=== PATIENT | male | born 1940 | race Caucasian/White ===

== ENCOUNTER 2017-09-17 09:14 | Observation (INO) | payer OTHER ==
[~2017-09-17] VITALS: Ht 175.3 cm; Wt 82.0 kg
[~2017-09-17 09:14] MED LIST: AMLO5 PO; ASPI81CH PO; CLOP75 PO; CYAN1000 PO; Cipro500 MG PO; DAPS100 PO; Dapsone25 MG PO; FISH1000 PO; Flagyl250 MG PO; METO25ER PO; OMEP20ER PO; PANT40 PO; PRAV20 PO; TRIA80TC TOP; Vitamin C1000 M1 PO
[2017-09-17 09:41] LABS: BASOPHILS ABSOLUTE AUTO 0.09 K/mm3 (0.00-0.23); BASOPHILS PERCENT AUTO 0 % (0-2); EOSINOPHILS PERCENT AUTO 1 % (0-6); Hematocrit 42.2 % (37.0-53.0); Hemoglobin 14.2 g/dL (13.5-17.5); IMMATURE GRAN PERCENT AUTO 1 % (0-1); LYMPHOCYTES ABSOLUTE AUTO 3.53 K/mm3 (0.84-5.20); LYMPHOCYTES PERCENT AUTO 18 % (21-46); MONOCYTES ABSOLUTE AUTO 1.55 K/mm3 (0.16-1.47); MONOCYTES PERCENT AUTO 8 % (4-13); Mean Corpuscular HGB 36.9 pg (26.0-34.0); Mean Corpuscular HGB Conc 33.6 g/dL (31.5-36.5); Mean Corpuscular Volume 110 fL (80-100); Mean Platelet Volume 10.5 fL (9.1-12.4); NEUTROPHILS ABSOLUTE AUTO 14.62 K/mm3 (1.96-9.15); NEUTROPHILS PERCENT AUTO 73 % (41-73); Platelet Count 177 K/mm3 (150-400); RDW Coefficient Variation 12.5 % (11.7-14.2); RDW Standard Deviation 50.5 fL (35.1-46.3); Red Blood Cell Count 3.85 M/mm3 (4.30-5.90); White Blood Cell Count 20.09 K/mm3 (4.00-11.30)
[2017-09-17] MEDS ORDERED: ATOR40TA PO (09:48)
[2017-09-17] MEDS ORDERED: CARV6.25 PO (09:49)
[2017-09-17] MEDS ORDERED: Ferrous Fumara324 MG PO (09:51)
[2017-09-17] MEDS ORDERED: Prinivil10 MG PO (09:52)
[2017-09-17] MEDS ORDERED: MICROZIDE12.5 M1 PO (09:52)
[2017-09-17] MEDS ORDERED: Hair, Skin & N1 EACH PO (09:53)
[2017-09-17 09:54] LABS: International Normalized Ratio 0.97; Prothrombin Time Results 10.1 Sec (9.7-11.5)
[2017-09-17 10:04] LABS: Alanine Aminotransfer (ALT/SGP 26 U/L (12-78); Albumin, Blood 3.9 g/dL (3.4-5.0); Albumin/Globulin Ratio 1.3 (0.8-1.8); Alk Phos 87 U/L (50-136); Anion Gap 7 mmol/L (6-16); Aspartate Aminotrans (AST/SGOT 19 U/L (12-37); Bilirubin, Total 0.5 mg/dL (0.1-1.0); Blood Urea Nitrogen 13 mg/dL (8-24); Bun/Creatinine Ratio 20.5 (12.0-20.0); CO2, Blood 27 mmol/L (21-32); Calcium, Blood 9.1 mg/dL (8.5-10.1); Chloride, Blood 104 mmol/L (98-108); Creatinine, Blood 0.63 mg/dL (0.60-1.20); Globulin, Blood 3.1 g/dL (2.2-4.0); Glomerular Filtration Rate >60 (60-); Glucose, Blood 125 mg/dL (70-99); Magnesium, Blood 1.8 mg/dL (1.6-2.4); Potassium, Blood 4.5 mmol/L (3.5-5.5); Sodium, Blood 138 mmol/L (136-145); Troponin I 0.016 ng/mL (0.000-0.040)
[2017-09-17 10:11] LABS: Digoxin (Lanoxin) 0.09 ug/mL (0.80-2.00)
[2017-09-17 11:15] LABS: Bilirubin, Urine Neg (Neg); Blood, Urine 1+ (Neg); Glucose Qualitative, Urine Neg (Neg); Ketones, Urine Neg (Neg); Leukocyte Esterase, Urine Neg (Neg); Nitrite, Urine Neg (Neg); Protein, Urine 2+ (Neg); Urobilinogen, Urine NORM (Normal)
[2017-09-17 11:30] LABS: Appearance, Urine Clear (Clear); Color, Urine Yellow (P-Yellow)
[2017-09-17 11:41] LABS: Bacteria Rare /hpf; Red Blood Cells, Urine 0-2 /hpf (0-2); Squamous Epithelial Cells Rare /hpf (Few); White Blood Cells, Urine 0-2 /hpf (0-5)
[2017-09-18 05:09] LABS: BASOPHILS ABSOLUTE AUTO 0.08 K/mm3 (0.00-0.23); BASOPHILS PERCENT AUTO 1 % (0-2); EOSINOPHILS ABSOLUTE AUTO 0.24 K/mm3 (0.00-0.68); EOSINOPHILS PERCENT AUTO 2 % (0-6); Hematocrit 38.9 % (37.0-53.0); Hemoglobin 13.1 g/dL (13.5-17.5); IMMATURE GRAN ABSOLUTE AUTO 0.04 K/mm3 (0.00-0.10); IMMATURE GRAN PERCENT AUTO 0 % (0-1); LYMPHOCYTES ABSOLUTE AUTO 3.46 K/mm3 (0.84-5.20); LYMPHOCYTES PERCENT AUTO 33 % (21-46); MONOCYTES ABSOLUTE AUTO 0.82 K/mm3 (0.16-1.47); MONOCYTES PERCENT AUTO 8 % (4-13); Mean Corpuscular HGB 36.8 pg (26.0-34.0); Mean Corpuscular HGB Conc 33.7 g/dL (31.5-36.5); Mean Corpuscular Volume 109 fL (80-100); Mean Platelet Volume 10.7 fL (9.1-12.4); NEUTROPHILS ABSOLUTE AUTO 6.01 K/mm3 (1.96-9.15); NEUTROPHILS PERCENT AUTO 56 % (41-73); Platelet Count 149 K/mm3 (150-400); RDW Coefficient Variation 12.3 % (11.7-14.2); RDW Standard Deviation 50.4 fL (35.1-46.3); Red Blood Cell Count 3.56 M/mm3 (4.30-5.90); White Blood Cell Count 10.65 K/mm3 (4.00-11.30)
[2017-09-18 05:26] LABS: Anion Gap 7 mmol/L (6-16); Blood Urea Nitrogen 17 mg/dL (8-24); Bun/Creatinine Ratio 28.9 (12.0-20.0); CO2, Blood 26 mmol/L (21-32); Calcium, Blood 9.2 mg/dL (8.5-10.1); Chloride, Blood 104 mmol/L (98-108); Creatinine, Blood 0.59 mg/dL (0.60-1.20); Glomerular Filtration Rate >60 (60-); Glucose, Blood 141 mg/dL (70-99); Potassium, Blood 4.5 mmol/L (3.5-5.5); Sodium, Blood 137 mmol/L (136-145)
== END 2017-09-18 11:01 | disposition home or self-care (01) ==
LOC: ER 09:14 → MEDS 09:15 → ENPENDDIS 09-18 10:00 → MEDS 09-18 11:01
PROVIDERS: Emergency Medicine; Internal Medicine
DX: R00.1 Bradycardia, unspecified (principal); R55 Syncope and collapse; I48.91 Unspecified atrial fibrillation; I25.10 Atherosclerotic heart disease of native coronary artery without angina pectoris; I10 Essential (primary) hypertension; F17.210 Nicotine dependence, cigarettes, uncomplicated; R42 Dizziness and giddiness; Z79.82 Long term (current) use of aspirin; Z79.899 Other long term (current) drug therapy; Z79.02 Long term (current) use of antithrombotics/antiplatelets; Z95.5 Presence of coronary angioplasty implant and graft
CPT/HCPCS: 36415; 71045; 80048; 80053; 80162; 81001; 83735; 83880; 84484; 85025; 85610; 93005; 93010; 99285; G0378

== ENCOUNTER 2019-06-19 13:04 | Inpatient (IN) | payer OTHER ==
[~2019-06-19] VITALS: Ht 175.3 cm; Wt 83.3 kg
[~2019-06-19 13:04] MED LIST changes: +CARV6.25 PO; -CYAN1000 PO; -Dapsone25 MG PO; -FISH1000 PO; +MICROZIDE12.5 M1 PO; -PANT40 PO
[2019-06-19 13:49] LABS: BASOPHILS ABSOLUTE AUTO 0.06 K/mm3 (0.00-0.23); BASOPHILS PERCENT AUTO 1 % (0-2); EOSINOPHILS ABSOLUTE AUTO 0.08 K/mm3 (0.00-0.68); EOSINOPHILS PERCENT AUTO 1 % (0-6); Hematocrit 37.9 % (37.0-53.0); Hemoglobin 12.4 g/dL (13.5-17.5); IMMATURE GRAN ABSOLUTE AUTO 0.03 K/mm3 (0.00-0.10); IMMATURE GRAN PERCENT AUTO 0 % (0-1); LYMPHOCYTES ABSOLUTE AUTO 2.86 K/mm3 (0.84-5.20); LYMPHOCYTES PERCENT AUTO 23 % (21-46); MONOCYTES ABSOLUTE AUTO 1.12 K/mm3 (0.16-1.47); MONOCYTES PERCENT AUTO 9 % (4-13); Mean Corpuscular HGB 35.4 pg (26.0-34.0); Mean Corpuscular HGB Conc 32.7 g/dL (31.5-36.5); Mean Corpuscular Volume 108 fL (80-100); Mean Platelet Volume 10.3 fL (9.1-12.4); NEUTROPHILS ABSOLUTE AUTO 8.08 K/mm3 (1.96-9.15); NEUTROPHILS PERCENT AUTO 66 % (41-73); NRBC ABSOLUTE 0.02 K/mm3 (0.00-0.02); NRBC Auto 0.2 /100 WBC (0.0-0.2); Platelet Count 175 K/mm3 (150-400); RDW Coefficient Variation 13.8 % (11.7-14.2); RDW Standard Deviation 54.6 fL (35.1-46.3); White Blood Cell Count 12.23 K/mm3 (4.00-11.30)
[2019-06-19 14:12] LABS: Alanine Aminotransfer (ALT/SGP 38 U/L (12-78); Albumin, Blood 3.3 g/dL (3.4-5.0); Albumin/Globulin Ratio 1.2 (0.8-1.8); Alk Phos 80 U/L (50-136); Anion Gap 9 mmol/L (6-16); Aspartate Aminotrans (AST/SGOT 28 U/L (12-37); Bilirubin, Total 0.6 mg/dL (0.1-1.0); Blood Urea Nitrogen 16 mg/dL (8-24); Bun/Creatinine Ratio 18.3 (12.0-20.0); CO2, Blood 24 mmol/L (21-32); Calcium, Blood 8.7 mg/dL (8.5-10.1); Chloride, Blood 108 mmol/L (98-108); Creatinine, Blood 0.88 mg/dL (0.60-1.20); Globulin, Blood 2.8 g/dL (2.2-4.0); Glomerular Filtration Rate >60 (60-); Glucose, Blood 127 mg/dL (70-99); Potassium, Blood 3.9 mmol/L (3.5-5.5); Sodium, Blood 141 mmol/L (136-145); Total Protein, Blood 6.1 g/dL (6.4-8.2); Troponin I 0.075 ng/mL (0.000-0.040)
[2019-06-19 15:17] LABS: Magnesium, Blood 1.8 mg/dL (1.6-2.4)
[2019-06-19 15:18] LABS: Thyroid Stimulating Hormone 2.19 uIU/mL (0.360-4.800)
[2019-06-19] MEDS ORDERED: ATOR40TA PO (15:29)
[2019-06-19] MEDS ORDERED: Fish Oil 10001000 MG PO (15:31)
[2019-06-19] MEDS ORDERED: Vitamin B-121000 MCG PO (15:31)
[2019-06-19] MEDS ORDERED: PANT40 PO (15:31)
[2019-06-19] MEDS ORDERED: Prinivil10 MG PO (15:32)
[2019-06-19] MEDS ORDERED: Dapsone25 MG PO (15:32)
[2019-06-19] MEDS ORDERED: FEROSUL325 M1 PO (15:32)
[2019-06-19] MEDS ORDERED: Hair, Skin & N1 EACH PO (15:32)
--- NOTE | 2019-06-19 15:32 | NUR ---
Echocardiogram completed.
[2019-06-19] MEDS ORDERED: ELIQUIS5 MG PO (15:45)
[2019-06-19] MEDS ORDERED: FURO20 PO (17:50)
[2019-06-19] MEDS ORDERED: METO25ER PO (17:51)
[2019-06-19] MEDS ORDERED: Klor-Con 1010 MEQ PO (17:52)
[2019-06-19 20:41] LABS: Source, Urine Clean Catch
[2019-06-19 20:54] LABS: Bilirubin, Urine Neg (Neg); Blood, Urine Neg (Neg); Glucose Qualitative, Urine 4+ (Neg); Ketones, Urine Neg (Neg); Leukocyte Esterase, Urine Neg (Neg); Nitrite, Urine Neg (Neg); Protein, Urine 1+ (Neg); Urobilinogen, Urine NORM (Normal)
[2019-06-19 21:00] LABS: Appearance, Urine Clear (Clear); Color, Urine Yellow (P-Yellow)
--- NOTE | 2019-06-19 22:45 | NUR ---
URINE SAMPLE COLLECTED AND SENT TO LAB.
[2019-06-20 01:13] LABS: BASOPHILS ABSOLUTE AUTO 0.02 K/mm3 (0.00-0.23); BASOPHILS PERCENT AUTO 0 % (0-2); EOSINOPHILS PERCENT AUTO 0 % (0-6); Hematocrit 39.8 % (37.0-53.0); Hemoglobin 12.7 g/dL (13.5-17.5); IMMATURE GRAN ABSOLUTE AUTO 0.04 K/mm3 (0.00-0.10); IMMATURE GRAN PERCENT AUTO 0 % (0-1); LYMPHOCYTES ABSOLUTE AUTO 1.83 K/mm3 (0.84-5.20); LYMPHOCYTES PERCENT AUTO 20 % (21-46); MONOCYTES ABSOLUTE AUTO 0.32 K/mm3 (0.16-1.47); MONOCYTES PERCENT AUTO 3 % (4-13); Mean Corpuscular HGB 34.3 pg (26.0-34.0); Mean Corpuscular HGB Conc 31.9 g/dL (31.5-36.5); Mean Corpuscular Volume 108 fL (80-100); Mean Platelet Volume 10.1 fL (9.1-12.4); NEUTROPHILS ABSOLUTE AUTO 7.11 K/mm3 (1.96-9.15); NEUTROPHILS PERCENT AUTO 76 % (41-73); Platelet Count 181 K/mm3 (150-400); RDW Coefficient Variation 13.8 % (11.7-14.2); RDW Standard Deviation 54.4 fL (35.1-46.3); White Blood Cell Count 9.32 K/mm3 (4.00-11.30)
[2019-06-20 01:32] LABS: Alanine Aminotransfer (ALT/SGP 38 U/L (12-78); Albumin, Blood 3.4 g/dL (3.4-5.0); Albumin/Globulin Ratio 1.1 (0.8-1.8); Alk Phos 85 U/L (50-136); Anion Gap 10 mmol/L (6-16); Aspartate Aminotrans (AST/SGOT 20 U/L (12-37); Bilirubin, Total 0.6 mg/dL (0.1-1.0); Blood Urea Nitrogen 27 mg/dL (8-24); Bun/Creatinine Ratio 24.5 (12.0-20.0); CO2, Blood 27 mmol/L (21-32); Calcium, Blood 9.3 mg/dL (8.5-10.1); Chloride, Blood 104 mmol/L (98-108); Globulin, Blood 3.1 g/dL (2.2-4.0); Glomerular Filtration Rate >60 (60-); Glucose, Blood 301 mg/dL (70-99); Potassium, Blood 4.6 mmol/L (3.5-5.5); Sodium, Blood 141 mmol/L (136-145); Total Protein, Blood 6.5 g/dL (6.4-8.2)
--- NOTE | 2019-06-20 04:02 | NUR ---
SHIFT SUMMARY PATIENT HAD NO ACUTE CHANGES OBSERVED THIS SHIFT. AXOX 3 AND 1-2 PERSON ASSIST TO STAND USING URINAL AT BEDSIDE. URINARY URGENCY WITH LASIX GIVEN IN ED AND SCHEDULED. PIV REMAINS INTACT. EMERGENCY SERVICE WORKER REPORTS PACED 100% AT 70 WITH UNDERLYING A-FIB. URINE SAMPLE COLLECTED AND SENT TO LAB. ON ROOM AND [place] [facility] [place]. TROPONINS TRENDING DOWN 0.075, 0.063, AND LAST 0.060. VSS/AFEBRILE. CALL LIGHT IN REACH. BED IN LOWEST POSITION. WILL CONTINUE TO MONITOR UNTIL DAY SHIFT NURSE ASSUMES CARE.
--- NOTE | 2019-06-20 16:25 | NUR ---
PT'S PACEMAKER CHECKED PER V/[address] BUTTS. PT IN AFIB, PACED 100% IN VENTRICLE. DEVICE WORKING PROPERLY, RESULTS GIVEN TO DR BUTTS AND ROUTED IN PACEART/OPTIMA TO DR GARIBAY
--- NOTE | 2019-06-20 18:49 | NUR ---
SHIFT SUMMARY NO ACUTE CHANGES THIS SHIFT. PT UP TO BATHROOM WITH STAND-BY ASSIST. NO COMPLAINTS OF PAIN. PT DOES HAVE SHORTNESS OF BREATH WITH EXERTION AND HAS NOT REQUIRED OXYGEN. IV LASIX GIVEN PER ORDERS AND PT VOIDING. NO COMPLAINTS AT THIS TIME. PLANS FOR PT TO HAVE ANGIO 06/22/19 AM. NO REQUESTS AT THIS TIME. CALL LIGHT IN REACH. WILL CONTINUE TO MONITOR AND REPORT TO ONCOMING RN.
--- NOTE | 2019-06-21 05:12 | NUR ---
SHIFT SUMMARY: BP ELEVATED, WILL RECHECK. PT SLEPT THROUGH MUCH OF THE NIGHT. DENIES PAIN. RECEIVED ROUTINE BREATHING TREATMENTS ONLY. NO BREAKTHROUGH DYSPNEA REPORTED SO FAR. VOIDING FREQUENTLY. PER TELE BANKRUPTCY PARALEGAL, HEART RHYTHM VENTRICULAR PACED AT 70 BPM. NO ACUTE CHANGES OVERNIGHT. WILL CONT TO MONITOR.
--- NOTE | 2019-06-21 08:20 | NUR ---
DIZZINESS/BLOOD PRESSURE PT SITTING IN CHAIR, EATING BREAKFAST WHEN PT REPORTED FEELING DIZZY AND "OUT OF IT" AND DIAPHORETIC. PT LOOKED FLUSHED IN THE FACE. VITALS WERE TAKEN AND PT'S BLOOD PRESSURE WAS 107/59. SYSTOLIC BLOOD PRESSURE WAS 127 WHEN LYING IN BED. THIS RN AND RECREATIONAL THERAPIST GOT PT BACK INTO BED AND HE TOLRATED IT WELL. PT REPORTED FEELING BETTER WHEN BACK IN BED. CALL LIGHT IN REACH. WILL CONTINUE TO MONITOR.
--- NOTE | 2019-06-21 09:25 | NUR ---
BLOOD PRESSURE/LASIX THIS RN TALKED WITH DR. BUTTS ABOUT PT'S SYMPTOMS WHILE SITTING IN CHAIR AND HIS DROP IN SYSTOLIC BP WHILE SITTING UP. DR. BUTTS ORDRED TO HOLD PT'S LASIX THIS AM. PLANS FOR PT TO HAVE ANGIOGRAM TOMORROW AM. CALL LIGHT IN REACH.
--- NOTE | 2019-06-21 18:58 | NUR ---
SHIFT SUMMARY PT HAD SOME COMPLAINTS OF LEFT LOWER ABDOMINAL PAIN THIS AM AND AFTERNOON. GAS-X GIVEN AND PT HAS NOT COMPLAINED THIS EVENING. PT HAD A BM THIS AM AND REPORTS IT WAS NOT LOOSE. PT HAS A GOOD APPETITE. HAS BEEN SLEEPING A LOT OF THE SHIFT. OXYGEN PLACED FOR SHORTNESS OF BREATH THIS AM AND PT TOLERATING. NO ACUTE CHANGES THIS EVENING. PLANS FOR ANGIOGRAM TOMORROW AM. CALL LIGHT IN REACH. WILL CONTINUE TO MONITOR AND REPORT TO ONCOMING RN.
--- NOTE | 2019-06-22 05:26 | NUR ---
SHIFT SUMMARY: VSS. AFEB. 02 SATS 93-95% ON 2L VIA NC. A/OX3. TELE SHOWING PACED RHYTHM AT 70BPM. MAKES NEEDS KNOWN. HAS BEEN SLEEPING HEAVILY ALL NIGHT. REMAINS NPO IN ANTICIPATION FOR ANGIOGRAM TODAY. PT CONT W/ L SIDE/BACK PAIN, POINTING JUST BELOW RIBS. STATES PAIN IS 3/10 AND DOES NOT WANT TO TAKE ANYTHING FOR IT AT THIS TIME. NO ACUTE CHANGES.
--- NOTE | 2019-06-22 08:02 | NUR ---
PT OFF FLOOR PT TAKEN TO HEART HOLDEN FOR PROCEDURE AT 0645, NO ASSESMENT PERFORMED. PT TRANSFERING TO ICU POST PROCEDURE WILL CALL REPORT TO AURELIA DUNCAN.
--- NOTE | 2019-06-22 08:18 | NUR ---
PT TO ICU 3 FROM [facility] AT 0755, VSS, PT A&OX4, DENIES PAIN OR C/O AT THIS TIME. LS CLEAR, PT DENIES SOB, SPO2 >90% ON RA, NO EDEMA NOTED. HR 70 PACED. TR BAND TO RIGHT WRIST, NO BLEEDING OR HEMATOMA NOTED AT SITE, RIGHT HAND PWD WITH CAP REFILL WNL, WRIST IMMOBILIZER IN PLACE, PT AWARE OF AND COMPLIANT WITH PRECAUTIONS. BREAKFAST GIVEN, PT SITTING IN BED EATING, DENIES NEEDS.
--- NOTE | 2019-06-22 10:52 | NUR ---
UPDATE DR. YORK IN TO SEE PATIENT, WILL PLAN TO DISCHARGE TOMORROW MORNING. PT GIVEN SNACK, DENIES OTHER NEEDS. VS REMAIN STABLE, DEFLATING TR BAND PER PROTOCOL, SITE WNL.
--- NOTE | 2019-06-22 13:57 | NUR ---
UPDATE TR BAND REMOVED PER PROTOCOL WITHOUT DIFFICULTY, OCCLUSIVE DRESSING APPLIED TO RADIAL ACCESS SITE, SITE WNL, WITHOUT HEMATOMA, TENDERNESS, OR BRUISING. RADIAL PULSE STRONG, CMS WNL. PT SITTING IN BED EATING A SNACK, VSS, DENIES PAIN, SOB, OR C/O. SPO2 97% ON RA AFTER NEB TREATMENT. LS REMAIN CLEAR, NO EDEMA NOTED TO LE'S. PT PLEASANT AND COOPERATIVE.
--- NOTE | 2019-06-22 16:51 | NUR ---
UPDATE DIALYSIS COMPLETED, 2 LITERS REMOVED PER DRINK MIXER. VSS T/O WITH INCREASED LEVO GTT, WILL ATTEMPT TO TITRATE PRESSORS ABLE. PT MEDICATED WITH OXYCODONE FOR RLS PAIN, IS NOW RESTING IN BED WITHOUT C/O. PALLIATIVE CARE IN TO SPEAK WITH PATIENT. PT REMAINS PLEASANT AND COOPERATIVE, ORIENTED X4.
--- NOTE | 2019-06-22 16:53 | NUR ---
UPDATE RIGHT RADIAL ACCESS SITE REMAINS WNL, IMMOBILZER IN PLACE. PT REMAINS COMPLIANT WITH PRECAUTIONS. PT PLEASANT AND COOPERATIVE, EATING AND DRINKING WITHOUT DIFFICULTY, VOIDING. DENIES SOB, LS REMAIN CLEAR, NO EDEMA NOTED, VSS.
--- NOTE | 2019-06-22 18:31 | NUR ---
END OF SHIFT PT ATE DINNER WITHOUT DIFFICULTY, IS NOW RESTING IN BED WITH NO C/O. RIGHT WRIST ACCESS SITE WNL, DRESSING CDI, IMMOBILIZER REMAINS ON. VSS, PT DENIED CP/PRESSURE/SOB T/O SHIFT, LS REMAIN CLEAR, SPO2 >90% ON RA, NO PEDAL EDEMA. PT HAD LARGE BM, VOIDING WITHOUT DIFFICULTY. ANXIOUS TO GO HOME, REMAINS PLEASANT AND COOPERATIVE. REPORT TO ONCOMING SHIFT.
--- NOTE | 2019-06-22 19:59 | NUR ---
START OF SHIFT: BEDSIDE REPORT FROM AURELIA DUNCAN. VSS. PT A+O X4. R RADIAL ACCESS SITE WNL WITH WRIST BOARD IN PLACE AND PT C/ VERBAL UNDERSTANDING OF USE RESTRICTIONS OF RIGHT ARM. PT IN BED WATCHING TV. PT REQUESTED AND WAS GIVEN A SANDWICH AND MILK. PT EXPRESSED EAGERNESS TO GO HOME IN AM.
[2019-06-23] MEDS ORDERED: ALBU90OI INH (10:29)
[2019-06-23] MEDS ORDERED: ACET325 PO (10:29)
[2019-06-23] MEDS ORDERED: ASPIR 8181 M1 PO (10:30)
[2019-06-23] MEDS ORDERED: SIME80CH PO (10:31)
--- NOTE | 2019-06-23 10:54 | NUR ---
CARE ASSUMED ASSESSMENT COMPLETED. R RADIAL ACCESS SITE WNL, WRIST IMMOBILIZER IN PLACE. VSS, PT DENIES SOB AND CP, LS CLEAR, SPO2 94% ON RA. DR. YORK IN TO ASSESS, DC ORDERS RECEIVED, PT TO HAVE HOME O2 EVAL PRIOR TO DISCHARGE. PT ATE BREAKFAST AND TOLERATED PO MEDS WITHOUT DIFFICULTY, RESTING IN BED WITH NO C/O.
--- NOTE | 2019-06-23 13:06 | NUR ---
DISCHARGE NOTE HOME O2 EVAL COMPLETED, NO HOME O2 NEEDED PER RT. IV DC'D WITH TIP INTACT, PRESSURE DRESSING APPLIED. PT ASSISTED TO DRESS. SON AT BEDSIDE, PT AND SON GIVEN DC INSTRUCTIONS, BOTH VERBALIZE UNDERSTANDING. PT DC TO HOME WITH SON AT THIS TIME, ASSISTED TO CAR VIA WC BY STAFF, SON TO DRIVE PT. PT DENIES SOB/CP UPON DISHCARGE, R RADIAL ACCESS SITE REMAINS WNL.
== END 2019-06-23 12:10 | disposition home or self-care (01) | DRG 291 ==
LOC: ER 13:04 → MEDS 16:49 → ICUE 16:49 → MEDS 17:15 → ICUE 06-22 08:00
PROVIDERS: Nurse Practitioner Acute Care; Physician Assistant; ADMIT Family Medicine
DX: I11.0 Hypertensive heart disease with heart failure (principal); J96.01 Acute respiratory failure with hypoxia; I48.20 Chronic atrial fibrillation, unspecified; G62.9 Polyneuropathy, unspecified; I50.23 Acute on chronic systolic (congestive) heart failure; I73.9 Peripheral vascular disease, unspecified; I25.10 Atherosclerotic heart disease of native coronary artery without angina pectoris; Z95.0 Presence of cardiac pacemaker; I25.2 Old myocardial infarction; Z87.891 Personal history of nicotine dependence
CPT/HCPCS: 36415; 36416; 71046; 71260; 80053; 82947; 83036; 83735; 83880; 84443; 84484; 85025; 85347; 85379; 93005; 93010; 93280; 93306; 93458; 94640; 94644; 94760; 94761; 96374; 96375; 99152; 99285-25; A9270-GY; C1769; C1894; J0360; J1644; J1940; J2250; J2930; J3010; J7030; Q9967

== ENCOUNTER 2020-08-14 15:00 | Emergency (ER) | payer OTHER ==
[~2020-08-14] VITALS: Ht 175.3 cm; Wt 91.2 kg
[~2020-08-14 15:00] MED LIST changes: +ACET325 PO; +ALBU90OI INH; +ASPIR 8181 M1 PO; +ATOR40TA PO; +Dapsone25 MG PO; +ELIQUIS5 MG PO; +FEROSUL325 M1 PO; +FURO20 PO; +Fish Oil 10001000 MG PO; +Hair, Skin & N1 EACH PO; +Klor-Con 1010 MEQ PO; +PANT40 PO; +Prinivil10 MG PO; +SIME80CH PO; +Vitamin B-121000 MCG PO
[2020-08-14 15:19] LABS: BASOPHILS ABSOLUTE AUTO 0.07 K/mm3 (0.00-0.23); BASOPHILS PERCENT AUTO 1 % (0-2); EOSINOPHILS ABSOLUTE AUTO 0.01 K/mm3 (0.00-0.68); EOSINOPHILS PERCENT AUTO 0 % (0-6); IMMATURE GRAN ABSOLUTE AUTO 0.07 K/mm3 (0.00-0.10); IMMATURE GRAN PERCENT AUTO 1 % (0-1); LYMPHOCYTES PERCENT AUTO 22 % (21-46); MONOCYTES ABSOLUTE AUTO 0.98 K/mm3 (0.16-1.47); MONOCYTES PERCENT AUTO 8 % (4-13); Mean Corpuscular HGB 29.9 pg (26.0-34.0); Mean Corpuscular HGB Conc 29.7 g/dL (31.5-36.5); Mean Corpuscular Volume 101 fL (80-100); NEUTROPHILS ABSOLUTE AUTO 9.06 K/mm3 (1.96-9.15); NEUTROPHILS PERCENT AUTO 70 % (41-73); Platelet Count 161 K/mm3 (150-400); RDW Coefficient Variation 16.1 % (11.7-14.2); RDW Standard Deviation 59.3 fL (35.1-46.3); Red Blood Cell Count 3.68 M/mm3 (4.30-5.90); White Blood Cell Count 12.99 K/mm3 (4.00-11.30)
[2020-08-14 15:38] LABS: Albumin, Blood 2.9 g/dL (3.4-5.0); Albumin/Globulin Ratio 1.2 (0.8-1.8); Bilirubin, Total 0.5 mg/dL (0.1-1.0); Calcium, Blood 8.2 mg/dL (8.5-10.1); Creatinine, Blood 1.37 mg/dL (0.60-1.20); Globulin, Blood 2.5 g/dL (2.2-4.0); Potassium, Blood 4.1 mmol/L (3.5-5.5); Total Protein, Blood 5.4 g/dL (6.4-8.2); Troponin I 0.091 ng/mL (0.000-0.040)
[2020-08-14] MEDS ORDERED: LOPE2C PO (16:26)
[2020-08-14] MEDS ORDERED: MELATONIN3 M1 PO (16:28)
--- NOTE | 2020-08-15 00:55 | NUR ---
REVIEWED PT'S INFO FOR CURRENT ADMISSION
== END 2020-08-14 18:40 | disposition home or self-care (01) ==
LOC: ER 15:00
PROVIDERS: Emergency Medicine
DX: I11.0 Hypertensive heart disease with heart failure (principal); I50.9 Heart failure, unspecified; I25.10 Atherosclerotic heart disease of native coronary artery without angina pectoris; J44.9 Chronic obstructive pulmonary disease, unspecified; I48.91 Unspecified atrial fibrillation; Z95.0 Presence of cardiac pacemaker; Z79.01 Long term (current) use of anticoagulants; Z79.899 Other long term (current) drug therapy; Z79.82 Long term (current) use of aspirin
CPT/HCPCS: 36415; 71045; 80053; 83880; 84484; 85025; 93005; 93010; 99284-25; J1940

== ENCOUNTER 2020-08-14 23:55 | Inpatient (IN) | payer OTHER ==
[~2020-08-14] VITALS: Ht 175.3 cm; Wt 91.2 kg
[~2020-08-14 23:55] MED LIST changes: +LOPE2C PO; +MELATONIN3 M1 PO
--- NOTE | 2020-08-15 01:57 | NUR ---
71 YR OLD MALE ADMITTED TO THE FLOOR FROM THE ED WITH DX OF CHF, REPORTED HE HAS BEEN GETTING WEAKER OVER THE PAST FEW WEEKS IN HIS LEGS AND CAN NO LONGER STAND DUE TO BUFKLING OF HIS KNEES. ALERT AND ORIENTED TO CALL LIGHT AND CALL LIGHT IN REACH
--- NOTE | 2020-08-15 04:27 | NUR ---
SHIFT SUMMARY WAS ADMITTED EARLIER IN THE SHIFT WITH ACUTE/CHRONIC CHF. PLACED ON TELE, IS PACED. TOLERATED SNACK WELL. ALERT AND ORIENTED. HAS BEEN RESTING QUIETLY WITH OCCASIONAL SNORING. CALL LIGHT IN REACH
[2020-08-15 06:27] LABS: BASOPHILS ABSOLUTE AUTO 0.08 K/mm3 (0.00-0.23); BASOPHILS PERCENT AUTO 1 % (0-2); EOSINOPHILS ABSOLUTE AUTO 0.02 K/mm3 (0.00-0.68); EOSINOPHILS PERCENT AUTO 0 % (0-6); Hematocrit 38.1 % (37.0-53.0); Hemoglobin 11.5 g/dL (13.5-17.5); Mean Corpuscular HGB 30.7 pg (26.0-34.0); Mean Corpuscular HGB Conc 30.2 g/dL (31.5-36.5); Mean Corpuscular Volume 102 fL (80-100); Mean Platelet Volume 10.4 fL (9.1-12.4); Platelet Count 161 K/mm3 (150-400); RDW Coefficient Variation 16.2 % (11.7-14.2); RDW Standard Deviation 59.5 fL (35.1-46.3); Red Blood Cell Count 3.75 M/mm3 (4.30-5.90); White Blood Cell Count 15.97 K/mm3 (4.00-11.30)
[2020-08-15 06:29] LABS: IMMATURE GRAN ABSOLUTE AUTO 0.07 K/mm3 (0.00-0.10); IMMATURE GRAN PERCENT AUTO 0 % (0-1); LYMPHOCYTES ABSOLUTE AUTO 4.33 K/mm3 (0.84-5.20); LYMPHOCYTES PERCENT AUTO 27 % (21-46); MONOCYTES ABSOLUTE AUTO 1.43 K/mm3 (0.16-1.47); MONOCYTES PERCENT AUTO 9 % (4-13); NEUTROPHILS ABSOLUTE AUTO 10.04 K/mm3 (1.96-9.15); NEUTROPHILS PERCENT AUTO 63 % (41-73)
[2020-08-15 06:44] LABS: Bun/Creatinine Ratio 16.5 (12.0-20.0); Calcium, Blood 8.4 mg/dL (8.5-10.1); Creatinine, Blood 1.64 mg/dL (0.60-1.20); Potassium, Blood 3.4 mmol/L (3.5-5.5)
--- NOTE | 2020-08-15 19:41 | NUR ---
SHIFT SUMMARY NO ACUTE CHANGES THIS SHIFT. PT A/O X4; PLEASANT AND COOPERATIVE WITH CARE. HE WORKED WITH P.T. AND O.T. BUT STILL C/O HIS LEGS BUCKLING UNDER HIM WHEN AMBULATING. VSS. REPORT GIVEN TO ROCIO DUNCAN.
--- NOTE | 2020-08-15 19:50 | NUR ---
ASSUMPTION OF CARE. AOX3, TIRED. 2LITERS OF O2 NC. LUNG SOUNDS CLEAR WITH SOME WHEEZES. NO COUGH. SATS 92%. DENIES SOB. BLE EDEMA 1+. NO PAIN NOTED. ABDOMIN SLIGHTLY DISTENDED STATES IS HIS NORMAL BUT HE DOES FEEL LIKE HE WILL HAVE A BM TONIGHT. BTX4. NO PAIN NOTED. STATES HE IS DOING OK. WILL CONTINUE TO MONITOR. CALL LIGHT IS IN REACH.
[2020-08-16 04:52] LABS: Hematocrit 36.3 % (37.0-53.0); Hemoglobin 11.1 g/dL (13.5-17.5); Mean Corpuscular HGB 30.6 pg (26.0-34.0); Mean Corpuscular HGB Conc 30.6 g/dL (31.5-36.5); Mean Corpuscular Volume 100 fL (80-100); Platelet Count 155 K/mm3 (150-400); RDW Coefficient Variation 15.8 % (11.7-14.2); RDW Standard Deviation 57.6 fL (35.1-46.3); Red Blood Cell Count 3.63 M/mm3 (4.30-5.90); White Blood Cell Count 13.48 K/mm3 (4.00-11.30)
[2020-08-16 05:22] LABS: Bun/Creatinine Ratio 22.6 (12.0-20.0); Calcium, Blood 8.3 mg/dL (8.5-10.1); Creatinine, Blood 1.24 mg/dL (0.60-1.20); Potassium, Blood 3.8 mmol/L (3.5-5.5)
--- NOTE | 2020-08-16 05:48 | NUR ---
SHIFT SUMMARY: AOX4, COOPERATIVE. LS DIMINISHED IN BASES, SATS 92% ON 2L NC, NO COUGH NOTED. DENIES SOB. HR 100% PACED PER TELEMETRY, NO EVENTS. BLE EDEMA +2, OUTPUT 1275 THIS SHIFT. ENCOURAGED DEEP BREATHING EXERCISES. SLEPT WELL T/O SHIFT. VS WNL, AFEBRILE. CALL LIGHT REMAINED IN REACH AND USED APPROPRIATLY.
--- NOTE | 2020-08-16 17:25 | NUR ---
SHIFT SUMMARY A+OX4. PT PLEASANT AND COOPERATIVE TO CARE. ON 2L O2. PT HAS TELE AND PACEMAKER. X1 ASSIST TO BATHROOM. BILATERAL EDEMA IN LEGS MANAGED BY DIURETICS. BANDAGE ON LEFT ANKLE CHANGED IN PM. PATIENT NOT SATIETED BY MEALS, CONSTANTLY REQUESTS MORE FOOD. PATIENT IN CHAIR WITH CALL ALARM AT SIDE.
--- NOTE | 2020-08-16 18:29 | NUR ---
PLEASE REFER TO PREVIOUS NOTE BY STUDENT FOR SHIFT SUMMARY.
--- NOTE | 2020-08-17 01:45 | NUR ---
0145 DIRECTOR TEEN POST CALLED AND INFORMED PT HAD A LONG RUN OF V-TACH. PT ASSESSED AND NO ISSUES NOTED. DIRECTOR TEEN POST REPORTS PT BACK IN PACED RHYTHM AT 60.
--- NOTE | 2020-08-17 04:18 | NUR ---
summary PT HAD REPORTED RUN OF V-TACH. PT DENIED CX PAIN OR SOB. PT RETURNED TO PACED RHYTHM. PT HAD NOTED LOOSE STOOLS DURING THE NIGHT. PT DENIES ANY AND DISCOMFORT OR N/V. WCTM. PT HAS DENIED ANY DISCOMFORT DURING SHIFT. PT HAS BEEN SLEEPING FOR MOST OF SHIFT. PT CURRENTLY SLEEPING IN NO DISTRESS. CALL LIGHT IN REACH.
[2020-08-17 05:28] LABS: Anion Gap 4 mmol/L (6-16); Blood Urea Nitrogen 31 mg/dL (8-24); Bun/Creatinine Ratio 30.1 (12.0-20.0); CO2, Blood 36 mmol/L (21-32); Calcium, Blood 8.4 mg/dL (8.5-10.1); Chloride, Blood 100 mmol/L (98-108); Creatinine, Blood 1.03 mg/dL (0.60-1.20); Glomerular Filtration Rate >60 (60-); Glucose, Blood 189 mg/dL (70-99); Potassium, Blood 4.2 mmol/L (3.5-5.5); Sodium, Blood 140 mmol/L (136-145)
--- NOTE | 2020-08-17 18:12 | NUR ---
SHIFT SUMMARY PT A+OX4. PT COOPERATIVE TO CARE. PT X1 ASSIST TO BATHROOM. PT REPORTS FREQUENT LOOSE STOOLS, MANAGED PER LOPERAMIDE. PATIENT IN CHAIR WITH CALL ALARM AT SIDE
--- NOTE | 2020-08-17 18:25 | NUR ---
PLEASE REFER TO PREVIOUS NOTE FOR SHIFT SUMMARY.
--- NOTE | 2020-08-18 04:30 | NUR ---
SUMMARY PT HAD NO NEW ISSUES NOTED. PT HAS SLEPT T/O SHIFT. PT CURRENTLY SLEEPING AND IN NO DISTRESS. CALL LIGHT IN REACH.
[2020-08-18 04:38] LABS: Base Excess Venous 15.5 mmol/L; Bicarbonate Venous 37.6 mmol/L (24.0-30.0); PCO2 Venous 44.9 mmHg (38-42); PO2 Venous 61.7 mmHg (38-42); pH Blood Venous 7.54 (7.34-7.37)
[2020-08-18 04:39] LABS: Hematocrit 39.1 % (37.0-53.0); Hemoglobin 11.8 g/dL (13.5-17.5); Mean Corpuscular HGB 30.3 pg (26.0-34.0); Mean Corpuscular HGB Conc 30.2 g/dL (31.5-36.5); Mean Corpuscular Volume 101 fL (80-100); Platelet Count 157 K/mm3 (150-400); RDW Standard Deviation 59.2 fL (35.1-46.3); Red Blood Cell Count 3.89 M/mm3 (4.30-5.90); White Blood Cell Count 14.27 K/mm3 (4.00-11.30)
[2020-08-18 05:01] LABS: Anion Gap 3 mmol/L (6-16); Blood Urea Nitrogen 27 mg/dL (8-24); Bun/Creatinine Ratio 29.5 (12.0-20.0); CO2, Blood 37 mmol/L (21-32); Calcium, Blood 8.7 mg/dL (8.5-10.1); Chloride, Blood 98 mmol/L (98-108); Creatinine, Blood 0.92 mg/dL (0.60-1.20); Glomerular Filtration Rate >60 (60-); Glucose, Blood 175 mg/dL (70-99); Magnesium, Blood 1.4 mg/dL (1.6-2.4); Sodium, Blood 138 mmol/L (136-145)
[2020-08-18 10:38] LABS: Free Thyroxine 0.93 ng/dL (0.70-1.60); Thyroid Stimulating Hormone 4.39 uIU/mL (0.360-4.800)
--- NOTE | 2020-08-18 17:25 | NUR ---
Received request for Palliative consult from Care Management to assist with pt's dog situation. He currently is a candidate for rehab, but he has not been willling to go because he states he has "NO one to watch my dog, and I'm not leaving her with my son-in law." However, when I went to see him, he had already identified a friend to keep his dog for as long as needed. So Ernie will be going to rehab.
--- NOTE | 2020-08-18 18:23 | NUR ---
SHIFT SUMMARY PT A+OX4. NO ACUTE CHANGES THIS SHIFT. PT KNEES BUCKLED WITH PHYSICAL THRAPY, OTHERWISE AMBULATING WELL WITH X1 ASSIST. PT EXPRESSED FRUSTRATION AND CONCERN THROUGHOUT DAY WITH GETTING DOG TAKEN CARE OF. RESOLVED, AND NOW PROJECTED TO GO TO REHAB
--- NOTE | 2020-08-18 19:30 | NUR ---
ASSUMPTION OF CARE. AOX3, FORGETFUL AT TIMES. DENIES ANY PAIN OR DISCOMFORT. NO CHEST PAIN. ASK WHEN HE IS GETTING OUT OF HER AND GOING TO REHAB. INFORMED HIM NOT SURE. LUNG SOUNDS ARE CLEAR WITH SOME WHEEZES IN THE BASES. HAD O2 OFF NOSE, SATS WERE 90-91% ON RA. WHEN HE EXERTS SELF OR WHEN HE FALLS ASLEEP HE TENDS TO DROP TO 88%. KEPT 2L OF O2 NC ON. NO COUGH OR CONGESTON. BLE EDEMA +1, SEVERAL SCABBED WOUNDS ALL OVER LEGS. DRESSINGS ON THE RIGHT KNEE AND ANKLE INTACT. DENIES ANY OTHER PROBLEMS OR CONCERNS AT THIS POINT. CALL LIGHT IN REACH, BED ALARM ON.
[2020-08-19 04:44] LABS: Hematocrit 39.9 % (37.0-53.0); Hemoglobin 11.8 g/dL (13.5-17.5); Mean Corpuscular HGB 29.8 pg (26.0-34.0); Mean Corpuscular HGB Conc 29.6 g/dL (31.5-36.5); Mean Corpuscular Volume 101 fL (80-100); Mean Platelet Volume 10.7 fL (9.1-12.4); Platelet Count 169 K/mm3 (150-400); RDW Coefficient Variation 15.9 % (11.7-14.2); RDW Standard Deviation 59.3 fL (35.1-46.3); Red Blood Cell Count 3.96 M/mm3 (4.30-5.90); White Blood Cell Count 12.43 K/mm3 (4.00-11.30)
[2020-08-19 05:03] LABS: Anion Gap 3 mmol/L (6-16); Blood Urea Nitrogen 29 mg/dL (8-24); Bun/Creatinine Ratio 30.3 (12.0-20.0); CO2, Blood 36 mmol/L (21-32); CPK Creatine Kinase 165 U/L (39-308); Calcium, Blood 8.7 mg/dL (8.5-10.1); Chloride, Blood 101 mmol/L (98-108); Creatinine, Blood 0.96 mg/dL (0.60-1.20); Glomerular Filtration Rate >60 (60-); Glucose, Blood 175 mg/dL (70-99); Potassium, Blood 4.4 mmol/L (3.5-5.5); Sodium, Blood 140 mmol/L (136-145)
[2020-08-19 05:30] LABS: BASOPHILS ABSOLUTE MAN 0.24 K/mm3 (0.00-0.23); BASOPHILS PERCENT MAN 2 % (0-2); EOSINOPHILS ABSOLUTE MAN 0.37 K/mm3 (0.00-0.68); EOSINOPHILS PERCENT MAN 3 % (0-6); LYMPHOCYTES ABSOLUTE MAN 4.84 K/mm3 (0.84-5.20); LYMPHOCYTES PERCENT MAN 39 % (21-46); MONOCYTES ABSOLUTE MAN 1.11 K/mm3 (0.16-1.47); MONOCYTES PERCENT MAN 9 % (4-13); NEUTROPHILS ABSOLUTE MAN 5.84 K/mm3 (1.96-9.15); SEG NEUTROPHILS PERCENT MAN 47 % (41-73); TOTAL CELLS COUNTED 100
--- NOTE | 2020-08-19 06:08 | NUR ---
SHIFT SUMMARY: AOX3 BUT HAD SOME CONFUSION T/O THE NIGHT. HE DID NOT KNOW WHERE HE WAS AT OR WHAT HE WAS DOING WHEN FOUND STANDING AT SIDE OF BED AND ALARM SOUNDING. VERY UNSTEADY ON HIS FEET, HOLDS ONTO THE BED UNTIL WALKER IS GIVEN. LUNG SOUNDS ARE CLEAR IN UPPER LOBES BUT DIMINISHED IN BASES WITH SOME WHEEZES. NO PAIN THIS SHIFT. DENIED ANY CHEST PAIN. EDEMA TO BLE. SEVERAL SCABS ALL OVER BLE, DRESSINGS TO LEFT KNEE AND LEFT ANKLE INTACT, NO NOTICE OF DRAINAGE. ATTEMPTED TO REMOVE O2, WAS 90-91% ON RA AT REST. WITH EXERTION OR SLEEPING HE DE-SATED TO 88%. AWAITING PLACEMENT TO SNF. NO OTHER CHANGES TO NOTE THIS SHIFT. CALL LIGHT REMAINS IN REACH AND BED ALARM ON.
[2020-08-19 08:59] LABS: Base Excess Venous 12.8 mmol/L; Bicarbonate Venous 33.4 mmol/L (24.0-30.0); PCO2 Venous 59.2 mmHg (38-42); PO2 Venous 33.9 mmHg (38-42); pH Blood Venous 7.41 (7.34-7.37)
--- NOTE | 2020-08-19 16:46 | NUR ---
Shift Summary A/Ox3, patient appears a little disgruntled this morning but remains cooperative with care. Denies any pain, nausea, vomiting, diarrhea. Uses urinal at bedside independently. Up in chair for meals. Currently on 2L O2. Occ nonproductive cough. L/S crackles at bases. Worked with PT/OT this shift. 1-2p c FWW and gait. Appetite is good. Bed/chair alarm on for safety. Awaiting rehab acceptance.
[2020-08-20 05:46] LABS: PCO2 Arterial 57.7 mmHg (35-45); pH Blood Arterial 7.35 (7.35-7.45)
--- NOTE | 2020-08-20 06:19 | NUR ---
SHIFT SUMMARY NO ACUTE CHANGES THIS SHIFT. AOX4. VSS. SPO2 >90% ON 2L O2. E/U RESPIRATIONS @REST. DENIES SOB @REST. CRACKLES IN BASES. +3 PITTING EDEMA BLE. ABLE TO AMBULATE TO RESTROOM W/O GETTING SOB, 1 ASSIST c GAIT BELT & FWW. CALL LIGHT IN REACH & PT ABLE TO MAKE NEEDS KNOWN.
[2020-08-20 12:22] LABS: Influenza A, PCR NEGATIVE (NEGATIVE); Influenza B, PCR NEGATIVE (NEGATIVE); Resp Syncytial Virus, PCR NEGATIVE (NEGATIVE); SARS-Cov-2 (COVID-19) PCR, MMC NEGATIVE (NEGATIVE)
[2020-08-20] MEDS ORDERED: FURO40 PO (12:48)
--- NOTE | 2020-08-20 13:34 | NUR ---
Discharge Summary A/Ox4, pleasant and cooperative with care. Worked with PT today. Home O2 eval completed (see eval note by RT). Discharging to [facility] for rehab. Discharge paperwork included in yellow packet and handed to transporter. IV removed, WNL. Per Celia, patient's poodle is at the [facility] where patient got his dog. Report called and given to Charlene RYAN. [facility].
[2020-08-20 14:12] LABS: FREE TESTOSTERONE(DIRECT) 2.8 pg/mL (6.6-18.1); TESTOSTERONE, SERUM 227 ng/dL (264-916)
[2020-08-27 07:09] LABS: ACHR MODULATING ANTIBODIES <12 % (0-20)
== END 2020-08-20 13:30 | DRG 280 ==
LOC: ER 23:55 → MEDS 08-15 01:03
PROVIDERS: Internal Medicine; ADMIT Family Medicine
DX: I13.0 Hypertensive heart and chronic kidney disease with heart failure and stage 1 through stage 4 chronic kidney disease, or unspecified chronic kidney disease (principal); I50.43 Acute on chronic combined systolic (congestive) and diastolic (congestive) heart failure; I21.A1 Myocardial infarction type 2; J96.21 Acute and chronic respiratory failure with hypoxia; J96.22 Acute and chronic respiratory failure with hypercapnia; N17.9 Acute kidney failure, unspecified; Z20.822 Contact with and (suspected) exposure to COVID-19; F42.4 Excoriation (skin-picking) disorder; E11.22 Type 2 diabetes mellitus with diabetic chronic kidney disease; I25.10 Atherosclerotic heart disease of native coronary artery without angina pectoris; K21.9 Gastro-esophageal reflux disease without esophagitis; Z95.0 Presence of cardiac pacemaker; Z98.890 Other specified postprocedural states; D50.9 Iron deficiency anemia, unspecified; J44.9 Chronic obstructive pulmonary disease, unspecified; Z95.5 Presence of coronary angioplasty implant and graft; Z79.899 Other long term (current) drug therapy; F17.210 Nicotine dependence, cigarettes, uncomplicated; I48.0 Paroxysmal atrial fibrillation; R29.6 Repeated falls; E11.65 Type 2 diabetes mellitus with hyperglycemia
CPT/HCPCS: 0241U; 36415; 36600; 70450; 80048; 82550; 82803; 82947; 83036; 83519; 83735; 83880; 84145; 84402; 84403; 84439; 84443; 84484; 85025; 85027; 93005; 93010; 94760; 94761; 96374; 97110; 97116; 97162; 97166; 97530; 97535; 99285-25; A9270; A9270-GY; J1940

== ENCOUNTER 2021-03-25 05:38 | Inpatient (IN) | payer OTHER ==
[~2021-03-25] VITALS: Ht 172.7 cm; Wt 79.6 kg
[~2021-03-25 05:38] MED LIST changes: +FURO40 PO
[2021-03-25] MEDS ORDERED: PANT40 PO (05:55)
[2021-03-25] MEDS ORDERED: POTA10T PO (05:56)
[2021-03-25] MEDS ORDERED: ATOR40TA PO (05:56)
[2021-03-25] MEDS ORDERED: Vitamin B-121000 MCG PO (05:57)
[2021-03-25] MEDS ORDERED: DAPS100 PO (05:57)
[2021-03-25] MEDS ORDERED: FURO20 PO (05:58)
[2021-03-25] MEDS ORDERED: MELA3 PO (05:59)
[2021-03-25] MEDS ORDERED: LOPE2C PO (05:59)
[2021-03-25 06:11] LABS: Hematocrit 49.3 % (37.0-53.0); Hemoglobin 15.8 g/dL (13.5-17.5); Mean Corpuscular HGB 32.4 pg (26.0-34.0); Mean Corpuscular Volume 101 fL (80-100); Mean Platelet Volume 11.2 fL (9.1-12.4); Platelet Count 240 K/mm3 (150-400); RDW Coefficient Variation 13.2 % (11.7-14.2); RDW Standard Deviation 49.5 fL (35.1-46.3); Red Blood Cell Count 4.87 M/mm3 (4.30-5.90); White Blood Cell Count 34.94 K/mm3 (4.00-11.30)
[2021-03-25 06:29] LABS: BAND PERCENT MAN 9 % (0-8); BASOPHILS ABSOLUTE MAN 0.69 K/mm3 (0.00-0.23); BASOPHILS PERCENT MAN 2 % (0-2); EOSINOPHILS PERCENT MAN 0 % (0-6); LYMPHOCYTES ABSOLUTE MAN 4.54 K/mm3 (0.84-5.20); LYMPHOCYTES PERCENT MAN 11 % (21-46); MONOCYTES ABSOLUTE MAN 2.09 K/mm3 (0.16-1.47); MONOCYTES PERCENT MAN 6 % (4-13); SEG NEUTROPHILS PERCENT MAN 70 % (41-73); TOTAL CELLS COUNTED 100
[2021-03-25 06:30] LABS: LYMPHOCYTES % ATYPICAL MANUAL 2 % (0-0)
[2021-03-25 06:31] LABS: Albumin, Blood 3.9 g/dL (3.4-5.0); Albumin/Globulin Ratio 1.1 (0.8-1.8); Bilirubin, Total 0.8 mg/dL (0.1-1.0); Bun/Creatinine Ratio 18.1 (12.0-20.0); Calcium, Blood 9.6 mg/dL (8.5-10.1); Creatinine, Blood 1.27 mg/dL (0.60-1.20); Globulin, Blood 3.4 g/dL (2.2-4.0); Potassium, Blood 5.4 mmol/L (3.5-5.5); Total Protein, Blood 7.3 g/dL (6.4-8.2)
[2021-03-25 09:18] LABS: Influenza A, PCR NEGATIVE (NEGATIVE); Influenza B, PCR NEGATIVE (NEGATIVE); Resp Syncytial Virus, PCR NEGATIVE (NEGATIVE); SARS-Cov-2 (COVID-19) PCR, MMC NEGATIVE (NEGATIVE)
[2021-03-25 10:24] LABS: Adenovirus F 40/41 Not Detected (NOT DETECT); Astrovirus Not Detected (NOT DETECT); Campylobacter Sp Not Detected (NOT DETECT); Cryptosporidium Not Detected (NOT DETECT); Cyclospora Cayetanensis Not Detected (NOT DETECT); E. Coli O157 Not Detected (NOT DETECT); Entamoeba Histolytica Not Detected (NOT DETECT); Enteroaggregative E. coli-EAEC Not Detected (NOT DETECT); Enteropathogenic E. coli-EPEC Not Detected (NOT DETECT); Enterotoxigenic E. coli-ETEC Not Detected (NOT DETECT); Giardia Lamblia Not Detected (NOT DETECT); Norovirus GI/GII Not Detected (NOT DETECT); Plesiomonas Shigelloides Not Detected (NOT DETECT); Rotavirus A Not Detected (NOT DETECT); Salmonella Sp Not Detected (NOT DETECT); Sapovirus Not Detected (NOT DETECT); Shiga Toxin-prod E. coli-STEC Not Detected (NOT DETECT); Shigella/Enteroin E. coli-EIEC Not Detected (NOT DETECT); Vibrio Cholerae Not Detected (NOT DETECT); Vibrio Sp Not Detected (NOT DETECT); Yersinia Enterocolitica Not Detected (NOT DETECT)
[2021-03-25 13:07] LABS: Hematocrit 47.3 % (37.0-53.0); Hemoglobin 14.7 g/dL (13.5-17.5)
--- NOTE | 2021-03-25 16:03 | NUR ---
SHIFT SUMMARY PT ADMITTED TO UNIT THIS AWA. PT IS AOX4. PT DENIES PAIN, N/V. PT IS ON 2 L O2 DUE TO DESATURATION WITH EXERTION. PT HAD CXR AND ABD CT IN ED. PT APPETITE IS GOOD. PT HAVING FREQUENT BLOODY DIARRHEA SINCE LAST NIGHT AND DURING ADMIT. PT DID NOT HAVE VISITORS THIS SHIFT. PLAN IS TO MONITOR BM'S AND GI CONSULTED. PT IS IN BED, CALL LIGHT IN REACH, LOW POSITION.
[2021-03-25 20:45] LABS: Hematocrit 39.4 % (37.0-53.0); Hemoglobin 12.9 g/dL (13.5-17.5)
[2021-03-26 06:05] LABS: BASOPHILS ABSOLUTE AUTO 0.45 K/mm3 (0.00-0.23); BASOPHILS PERCENT AUTO 1 % (0-2); EOSINOPHILS ABSOLUTE AUTO 0.12 K/mm3 (0.00-0.68); EOSINOPHILS PERCENT AUTO 0 % (0-6); Hematocrit 40.7 % (37.0-53.0); Mean Corpuscular HGB 32.5 pg (26.0-34.0); Mean Corpuscular HGB Conc 31.9 g/dL (31.5-36.5); Mean Corpuscular Volume 102 fL (80-100); Mean Platelet Volume 11.1 fL (9.1-12.4); Platelet Count 178 K/mm3 (150-400); RDW Coefficient Variation 13.2 % (11.7-14.2)
[2021-03-26 06:19] LABS: IMMATURE GRAN ABSOLUTE AUTO 0.38 K/mm3 (0.00-0.10); IMMATURE GRAN PERCENT AUTO 1 % (0-1); LYMPHOCYTES ABSOLUTE AUTO 7.19 K/mm3 (0.84-5.20); LYMPHOCYTES PERCENT AUTO 20 % (21-46); MONOCYTES ABSOLUTE AUTO 2.26 K/mm3 (0.16-1.47); MONOCYTES PERCENT AUTO 6 % (4-13); NEUTROPHILS PERCENT AUTO 72 % (41-73)
--- NOTE | 2021-03-26 06:46 | NUR ---
PT RESTED QUIETLY LAST NIGHT. NO COMPLAINTS VOICED. FREQUENCY OF EPISODES OF DIARRHEA SIGNIFICANTLY LESSENED AFTER FIRST FEW HOURS OF SHIFT. NO BLOODY STOOLS NOTED DURING SHIFT. PT WILL BE ON A CLEAR LIQUID DIET FOR BREAKFAST THIS MORNING. BED IS IN LOW POSITION WITH SAFETY MEASURES IN PLACE.
[2021-03-26 07:08] LABS: Alanine Aminotransfer (ALT/SGP 16 U/L (12-78); Albumin, Blood 3.1 g/dL (3.4-5.0); Albumin/Globulin Ratio 1.1 (0.8-1.8); Alk Phos 79 U/L (50-136); Anion Gap 7 mmol/L (6-16); Aspartate Aminotrans (AST/SGOT 14 U/L (12-37); Bilirubin, Total 0.9 mg/dL (0.1-1.0); Blood Urea Nitrogen 18 mg/dL (8-24); Bun/Creatinine Ratio 19.8 (12.0-20.0); CO2, Blood 24 mmol/L (21-32); Calcium, Blood 8.8 mg/dL (8.5-10.1); Chloride, Blood 105 mmol/L (98-108); Creatinine, Blood 0.91 mg/dL (0.60-1.20); Globulin, Blood 2.8 g/dL (2.2-4.0); Glomerular Filtration Rate >60 (60-); Glucose, Blood 162 mg/dL (70-99); Magnesium, Blood 1.9 mg/dL (1.6-2.4); Potassium, Blood 4.6 mmol/L (3.5-5.5); Sodium, Blood 136 mmol/L (136-145); Total Protein, Blood 5.9 g/dL (6.4-8.2)
--- NOTE | 2021-03-26 17:27 | NUR ---
PT QUITE PLEASANT TODAY. AMBULATES TO BSC NEEDED. LIQUID DIET TODAY. STARTING CLEAN-OUT AT 7PM TONITE. PLANS TO DO COLONOSCOPY TOMORROW AM. NO C.O PAIN. NOT BLOOD STOOL NOTED TODAY. H/R REG, NO MURMER NOTED. NO TELE. LUNGS LIGHTLY WHEEZY, STATES SOME ASTHSMA. ON R.A. SATS >93%. BT X4 LAST BM TODAY. VOIDS BSC. INDEPENDANT TO BSC. BED IN LOW POSITION, CALL LITE IN REACH, CALLS APPROP
[2021-03-27 05:32] LABS: Mean Corpuscular HGB 32.4 pg (26.0-34.0); Mean Corpuscular HGB Conc 31.7 g/dL (31.5-36.5); Mean Corpuscular Volume 102 fL (80-100); Mean Platelet Volume 11.1 fL (9.1-12.4); Platelet Count 164 K/mm3 (150-400); RDW Coefficient Variation 13.1 % (11.7-14.2); RDW Standard Deviation 49.1 fL (35.1-46.3); Red Blood Cell Count 4.01 M/mm3 (4.30-5.90); White Blood Cell Count 29.54 K/mm3 (4.00-11.30)
[2021-03-27 05:57] LABS: Albumin, Blood 3.2 g/dL (3.4-5.0); Anion Gap 8 mmol/L (6-16); Blood Urea Nitrogen 12 mg/dL (8-24); Bun/Creatinine Ratio 15.6 (12.0-20.0); CO2, Blood 24 mmol/L (21-32); Calcium, Blood 8.9 mg/dL (8.5-10.1); Chloride, Blood 104 mmol/L (98-108); Creatinine, Blood 0.77 mg/dL (0.60-1.20); Glomerular Filtration Rate >60 (60-); Glucose, Blood 139 mg/dL (70-99); Phosphorus, Blood 2.5 mg/dL (2.5-4.9); Potassium, Blood 4.7 mmol/L (3.5-5.5); Sodium, Blood 136 mmol/L (136-145)
--- NOTE | 2021-03-27 06:03 | NUR ---
SHIFT SUMMARY AOX4. KASAAN. VSS. DENIES PAIN BESIDES MILD ABD CRAMPING THIS AM. NPO FOR COLONOSCOPY TODAY. DRANK 4L GOLYTELY LAST NIGHT. HAVING LIQUID CLEAR YELLOW BM THIS AM. NO BLOOD NOTICED. REPORTS LUQ ABD DISCOMFORT c PALPATION. DENIES N/V. ABD MOD DISTENDED. ACTIVE BT. LS DIM c EXPIRATORY WHEEZES T/O. CALL LIGHT IN REACH. WCTM UNTIL DAY NURSE ASSUMES CARE.
[2021-03-27 07:03] LABS: BASOPHILS ABSOLUTE MAN 0.59 K/mm3 (0.00-0.23); BASOPHILS PERCENT MAN 2 % (0-2); EOSINOPHILS PERCENT MAN 0 % (0-6); LYMPHOCYTES % ATYPICAL MANUAL 1 % (0-0); LYMPHOCYTES ABSOLUTE MAN 9.45 K/mm3 (0.84-5.20); LYMPHOCYTES PERCENT MAN 31 % (21-46); MONOCYTES ABSOLUTE MAN 1.77 K/mm3 (0.16-1.47); MONOCYTES PERCENT MAN 6 % (4-13); NEUTROPHILS ABSOLUTE MAN 17.72 K/mm3 (1.96-9.15); SEG NEUTROPHILS PERCENT MAN 60 % (41-73); TOTAL CELLS COUNTED 100
[2021-03-27] MEDS ORDERED: AZIT500 PO (11:05)
--- NOTE | 2021-03-27 13:01 | NUR ---
DISCHARGE NOTE PATIENT WAS DISCHARGED TODAY VIA WHEEL CHAIR AT 1230. THE PATIENT WAS TAKEN TO SECURITY TO MEASUREMENT ANALYST THEIR BELONGINGS. PATIENT VERBALIZED UNDERSTANDING OF DISCHARGE INFORMATION. VSS, NOTHING FURTHER TO REPORT.
== END 2021-03-27 12:35 | disposition home or self-care (01) | DRG 378 ==
LOC: ER 05:38 → MEDS 09:34 → ERHOLD 09:34 → MEDS 15:20
PROVIDERS: Emergency Medicine; Nurse Practitioner Acute Care; ADMIT Internal Medicine
DX: K62.5 Hemorrhage of anus and rectum (principal); N17.9 Acute kidney failure, unspecified; I48.20 Chronic atrial fibrillation, unspecified; I50.22 Chronic systolic (congestive) heart failure; Z20.822 Contact with and (suspected) exposure to COVID-19; K52.9 Noninfective gastroenteritis and colitis, unspecified; K90.0 Celiac disease; E86.0 Dehydration; I25.10 Atherosclerotic heart disease of native coronary artery without angina pectoris; D50.9 Iron deficiency anemia, unspecified; I11.0 Hypertensive heart disease with heart failure; J44.9 Chronic obstructive pulmonary disease, unspecified; F17.210 Nicotine dependence, cigarettes, uncomplicated; Z98.890 Other specified postprocedural states; Z79.01 Long term (current) use of anticoagulants; Z91.14 Patient's other noncompliance with medication regimen; Z95.5 Presence of coronary angioplasty implant and graft; Z95.0 Presence of cardiac pacemaker; Z79.899 Other long term (current) drug therapy
CPT/HCPCS: 0097U; 0241U; 36415; 71045; 74177; 80053; 80069; 82272; 83605; 83735; 85014; 85018; 85025; 86850; 86900; 86901; 93005; 93010; 94760; 96365-59; 96366; 99285-25; A9270; J2543; J7030; Q9967

== ENCOUNTER 2021-10-17 16:09 | Inpatient (IN) | payer OTHER ==
[~2021-10-17] VITALS: Ht 167.6 cm; Wt 82.2 kg
[~2021-10-17 16:09] MED LIST changes: +AZIT500 PO; +MELA3 PO; +POTA10T PO
[2021-10-17 16:44] LABS: Hematocrit 37.1 % (37.0-53.0); Hemoglobin 11.4 g/dL (13.5-17.5); Mean Corpuscular HGB Conc 30.7 g/dL (31.5-36.5); Mean Corpuscular Volume 104 fL (80-100); Mean Platelet Volume 11.8 fL (9.1-12.4); NRBC ABSOLUTE 3.72 K/mm3 (0.00-0.02); NRBC Auto 2.5 /100 WBC (0.0-0.2); Platelet Count 348 K/mm3 (150-400); RDW Coefficient Variation 16.6 % (11.7-14.2); RDW Standard Deviation 62.6 fL (35.1-46.3); Red Blood Cell Count 3.56 M/mm3 (4.30-5.90)
[2021-10-17 16:50] LABS: White Blood Cell Count 147.94 K/mm3 (4.00-11.30)
[2021-10-17 16:56] LABS: Albumin, Blood 3.3 g/dL (3.4-5.0); Albumin/Globulin Ratio 1.1 (0.8-1.8); Bilirubin, Total 0.5 mg/dL (0.1-1.0); Bun/Creatinine Ratio 19.5 (12.0-20.0); Calcium, Blood 8.3 mg/dL (8.5-10.1); Creatinine, Blood 1.69 mg/dL (0.60-1.20); Potassium, Blood 5.5 mmol/L (3.5-5.5); Total Protein, Blood 6.3 g/dL (6.4-8.2)
[2021-10-17 17:04] LABS: BASOPHILS ABSOLUTE MAN 1.47 K/mm3 (0.00-0.23); BASOPHILS PERCENT MAN 1 % (0-2); TOTAL CELLS COUNTED 100
[2021-10-17 17:07] LABS: BLASTS PERCENT MAN 1 % (0-0); EOSINOPHILS ABSOLUTE MAN 2.95 K/mm3 (0.00-0.68); EOSINOPHILS PERCENT MAN 2 % (0-6); LYMPHOCYTES ABSOLUTE MAN 16.27 K/mm3 (0.84-5.20); LYMPHOCYTES PERCENT MAN 11 % (21-46); METAMYELOCYTE ABSOLUTE MAN 7.39 K/mm3 (0.00-0.00); METAMYELOCYTE PERCENT MAN 5 % (0-0); MONOCYTES ABSOLUTE MAN 19.23 K/mm3 (0.16-1.47); MONOCYTES PERCENT MAN 13 % (4-13); MYELOCYTE ABSOLUTE MAN 29.58 K/mm3 (0.00-0.00); MYELOCYTE PERCENT MAN 20 % (0-0); NEUTROPHILS ABSOLUTE MAN 66.57 K/mm3 (1.96-9.15); PLASMA CELL ABSOLUTE MAN 1.47 K/mm3 (0.00-0.00); PLASMA CELLS PERCENT MAN 1 % (0-0); PROMYELOCYTE ABSOLUTE MAN 1.47 K/mm3 (0.00-0.00); PROMYELOCYTE PERCENT MAN 1 % (0-0); SEG NEUTROPHILS PERCENT MAN 45 % (41-73)
[2021-10-17 17:40] LABS: Influenza A, PCR NEGATIVE (NEGATIVE); Influenza B, PCR NEGATIVE (NEGATIVE); Resp Syncytial Virus, PCR NEGATIVE (NEGATIVE); SARS-Cov-2 (COVID-19) PCR, MMC NEGATIVE (NEGATIVE)
[2021-10-17 18:30] LABS: International Normalized Ratio 1.73; Prothrombin Time Results 17.5 Sec (9.7-11.5)
[2021-10-17 20:50] LABS: C DIFFICILE DNA POSITIVE (Negative)
[2021-10-18 00:45] LABS: PCO2 Arterial 66.9 mmHg (35-45); pH Blood Arterial 7.05 (7.35-7.45)
[2021-10-18 01:13] LABS: BASOPHILS ABSOLUTE AUTO 3.74 K/mm3 (0.00-0.23); BASOPHILS PERCENT AUTO 3 % (0-2); Hematocrit 37.4 % (37.0-53.0); Hemoglobin 11.3 g/dL (13.5-17.5); Mean Corpuscular HGB 31.9 pg (26.0-34.0); Mean Corpuscular HGB Conc 30.2 g/dL (31.5-36.5); Mean Corpuscular Volume 106 fL (80-100); Mean Platelet Volume 11.8 fL (9.1-12.4); NRBC ABSOLUTE 4.41 K/mm3 (0.00-0.02); NRBC Auto 3.5 /100 WBC (0.0-0.2); Platelet Count 300 K/mm3 (150-400); RDW Coefficient Variation 16.6 % (11.7-14.2); RDW Standard Deviation 64.6 fL (35.1-46.3); Red Blood Cell Count 3.54 M/mm3 (4.30-5.90)
[2021-10-18 01:14] LABS: EOSINOPHILS ABSOLUTE AUTO 0.32 K/mm3 (0.00-0.68); EOSINOPHILS PERCENT AUTO 0 % (0-6); IMMATURE GRAN ABSOLUTE AUTO 24.46 K/mm3 (0.00-0.10); IMMATURE GRAN PERCENT AUTO 19 % (0-1); LYMPHOCYTES ABSOLUTE AUTO 14.59 K/mm3 (0.84-5.20); LYMPHOCYTES PERCENT AUTO 12 % (21-46); MONOCYTES ABSOLUTE AUTO 17.94 K/mm3 (0.16-1.47); MONOCYTES PERCENT AUTO 14 % (4-13); NEUTROPHILS ABSOLUTE AUTO 66.15 K/mm3 (1.96-9.15); NEUTROPHILS PERCENT AUTO 52 % (41-73)
[2021-10-18 01:25] LABS: Magnesium, Blood 2.1 mg/dL (1.6-2.4)
[2021-10-18 01:36] LABS: BAND PERCENT MAN 7 % (0-8); BASOPHILS PERCENT MAN 0 % (0-2); BLASTS PERCENT MAN 1 % (0-0); EOSINOPHILS PERCENT MAN 0 % (0-6); LYMPHOCYTES % ATYPICAL MANUAL 1 % (0-0); LYMPHOCYTES ABSOLUTE MAN 11.44 K/mm3 (0.84-5.20); LYMPHOCYTES PERCENT MAN 8 % (21-46); METAMYELOCYTE ABSOLUTE MAN 7.63 K/mm3 (0.00-0.00); METAMYELOCYTE PERCENT MAN 6 % (0-0); MONOCYTES ABSOLUTE MAN 12.72 K/mm3 (0.16-1.47); MONOCYTES PERCENT MAN 10 % (4-13); MYELOCYTE ABSOLUTE MAN 20.35 K/mm3 (0.00-0.00); MYELOCYTE PERCENT MAN 16 % (0-0); PROMYELOCYTE ABSOLUTE MAN 1.27 K/mm3 (0.00-0.00); PROMYELOCYTE PERCENT MAN 1 % (0-0); SEG NEUTROPHILS PERCENT MAN 50 % (41-73); TOTAL CELLS COUNTED 100
[2021-10-18 01:42] LABS: Albumin, Blood 2.9 g/dL (3.4-5.0); Albumin/Globulin Ratio 0.9 (0.8-1.8); Bilirubin, Total 0.6 mg/dL (0.1-1.0); Bun/Creatinine Ratio 20.2 (12.0-20.0); Creatinine, Blood 1.88 mg/dL (0.60-1.20); Globulin, Blood 3.1 g/dL (2.2-4.0); Phosphorus, Blood 7.4 mg/dL (2.5-4.9); Potassium, Blood 6.7 mmol/L (3.5-5.5)
[2021-10-18 03:13] LABS: Hematocrit 34.9 % (37.0-53.0); Mean Corpuscular HGB 31.7 pg (26.0-34.0); Mean Corpuscular HGB Conc 28.7 g/dL (31.5-36.5); Mean Platelet Volume 11.6 fL (9.1-12.4); NRBC ABSOLUTE 5.69 K/mm3 (0.00-0.02); NRBC Auto 4.3 /100 WBC (0.0-0.2); Platelet Count 331 K/mm3 (150-400); RDW Coefficient Variation 16.7 % (11.7-14.2); RDW Standard Deviation 67.3 fL (35.1-46.3); Red Blood Cell Count 3.15 M/mm3 (4.30-5.90)
[2021-10-18 03:14] LABS: Mean Corpuscular Volume 111 fL (80-100); White Blood Cell Count 133.13 K/mm3 (4.00-11.30)
[2021-10-18 03:34] LABS: Albumin, Blood 2.6 g/dL (3.4-5.0); Bilirubin, Total 0.6 mg/dL (0.1-1.0); Bun/Creatinine Ratio 19.1 (12.0-20.0); Calcium, Blood 8.2 mg/dL (8.5-10.1); Creatinine, Blood 2.25 mg/dL (0.60-1.20); Globulin, Blood 2.5 g/dL (2.2-4.0); Potassium, Blood 6.8 mmol/L (3.5-5.5); Total Protein, Blood 5.1 g/dL (6.4-8.2)
[2021-10-18 03:37] LABS: BAND PERCENT MAN 7 % (0-8); BASOPHILS PERCENT MAN 0 % (0-2); EOSINOPHILS PERCENT MAN 0 % (0-6); LYMPHOCYTES % ATYPICAL MANUAL 2 % (0-0); LYMPHOCYTES PERCENT MAN 11 % (21-46); METAMYELOCYTE ABSOLUTE MAN 6.65 K/mm3 (0.00-0.00); METAMYELOCYTE PERCENT MAN 5 % (0-0); MONOCYTES ABSOLUTE MAN 10.65 K/mm3 (0.16-1.47); MONOCYTES PERCENT MAN 8 % (4-13); MYELOCYTE ABSOLUTE MAN 22.63 K/mm3 (0.00-0.00); MYELOCYTE PERCENT MAN 17 % (0-0); NEUTROPHILS ABSOLUTE MAN 71.89 K/mm3 (1.96-9.15); PROMYELOCYTE ABSOLUTE MAN 3.99 K/mm3 (0.00-0.00); PROMYELOCYTE PERCENT MAN 3 % (0-0); SEG NEUTROPHILS PERCENT MAN 47 % (41-73); TOTAL CELLS COUNTED 100
--- NOTE | 2021-10-18 07:07 | NUR ---
SHIFT SUMMARY PATIENT ARRIVED FROM OR TO ICU INTUBATED-NO SEDATION RUNNING AT THAT TIME. PROPOFOL STARTED UPON ARRIVAL, BUT PATIENT BECAME HYPOTENSIVE QUICKLY AFTER LEADING TO PROPOFOL BEING STOPPED. BP DID NOT RECOVER AND BEGAN WORSENING. THIS EVENT AND LAB WORK LED TO DR. BONILLA BEING CONSULTED DURING THE WHITE SUGAR SUPERVISOR AND CAME TO SEE PATIENT. SUBSEQUENTLY PATIENT WAS STARTED ON LEVOPHED, BICARB GTT @ 150ML/HR, CALCIUM CHLORIDE X 1, IV INSULIN 10UNITS X 1, FLAGYL IV, AND LASIX 40MG IV X 1. POTASSIUM REMAINED HIGH AT 6.8 AFTER THE ABOVE MEDICATIONS-A SECOND DOSE OF LASIX 40MG IV ORDERED AND GIVEN. PATIENT WAS UNRESPONSIVE UPON ARRIVAL TO ICU AND UNTIL 0400 WHEN HE BEGAN OPENING HIS EYES. HE CONTINUES TO ATTEMPT TO OPEN EYES TO VERBAL STIMULI WITHOUT TRACKING AND NO FOLLOWING OF COMMANDS. NO GAG, COUGH, OR SWALLOW PRESENT AND NO ETT SECRETIONS PRESENT. PATIENT COVERED WITH 15 UNITS SC INSULIN THIS AM FOR CBG 385. PATIENT HAD MINIMAL URINE OUTPUT-100ML TOTAL FROM [place]. JAMIL DRESSING IN PLACE TO ABD WITH MINIMAL CONTINUED BLEEDING. VERIFIED WITH DAYSHIFT RN AT BEDSIDE. NO OTHER CHANGES DURING SHIFT.
--- NOTE | 2021-10-18 08:01 | NUR ---
PT HYPOTENSIVE THIS AM. ON LEVOPHED PERIPHERAL. INCREASED TO 8MCG. DR. BONILLA CALLED BY ELECTRICAL AND ELECTRONIC ASSEMBLER WHILE THIS RN STAYS AT BEDSIDE. NEW ORDER FOR LR BOLUS, ABG, AND REPEAT LABS. BOLUS STARTED. PT WILL ATTEMPT TO OPEN EYES WITH NOXIOUS STIMULUS BUT NOT TO COMMAND. NO SEDATION. CANNOT GET SPO2 READING. ONLY ABLE TO GET DOPPLER PULSE ON L RADIAL WHICH IS FAINT WELL. JUGULAR AND FEMORAL FOUND BY PALPATION. PT MOTTLED FROM KNEES DOWN. FINGERS PURPLE DISCOLORATION. TONGUE IS WHITE, GUMS ARE PALE. POOR UO. JAMIL DRAIN TO ABD WITH SMALL AMT OF DRIED OLD BLOOD. OG CLAMPED AT THE MOMENT FOR PT VANCO. THERE IS RUST COLORED OUTPUT IN OG CANNISTER. ABD DISTENDED, CANNOT HEAR ANY BT'S. CALLED PALIATIVE CARE TO CONSULT VENU ON THIS PT.
[2021-10-18 08:15] LABS: PCO2 Arterial 52.2 mmHg (35-45); PO2 Arterial 181 mmHg (80-100); pH Blood Arterial 6.98 (7.35-7.45)
[2021-10-18 09:19] LABS: Bun/Creatinine Ratio 17.6 (12.0-20.0); Calcium, Blood 7.5 mg/dL (8.5-10.1); Creatinine, Blood 2.67 mg/dL (0.60-1.20); Potassium, Blood 7.2 mmol/L (3.5-5.5)
--- NOTE | 2021-10-18 09:41 | NUR ---
Pt resting in bed and is intubated and not sedated. Spoke with Primary RN Dr Mendoza Peterson and discussed case. Pt requiring significant vent support, pressors, and not on sedation. Reviewed plan of care. Pt has [facility] with [facility]. Pt's MPOA is son Ino. Pt's step son arrives and is updated on Pt's condition. He will call Pt's son Ino who lives in [place]. Palliative Care will remain available for supportive and therapeutic visits.
--- NOTE | 2021-10-18 11:37 | NUR ---
PT CONTINUES TO BE HYPOTENSIVE. POTASSIUM STILL CRITICALLY HIGH. DR. BONILLA PLACED TRIALYSIS CATH AND A-LINE TO R FEMORAL. PT ON LEVOPHED, VASOPRESSIN, AND DOBUTAMINE. DR. ROQUE CONSULTED TO SEE IF INCREASING PACER RATE WOULD IMPROVE BP. DR. CORONA CONSULTED FOR EMERGENT DIALYSIS DUE TO HIGH POTASSIUM. SEE FLOWSHEET FOR TITRATIONS. STEP SON AND SON HAVE BEEN UPDATED T/O THE DAY. PALLIATIVE HAS BEEN WORKING WITH SONS TO TRY TO UNDERSTAND WHAT DAD'S WISHES WOULD BE. ABLE TO PALPATE L RADIAL PULSE NOW, UNABLE TO FIND OTHER PULES WITH DOPPLER. PT IS MOTTLED FROM KNEES DOWN WITH DUSKY FINGER TIPS. BEFORE DOBUTAMINE WAS STARTED PT WAS STARTING TO MOTTLE AROUND L SIDE OF CHEST. AFTER DOBUTAMINE THAT MOTTLING HAS CLEARED. STILL UNABLE TO GET SPO2 READING. NO OTHER CHANGES IN ASSESSMENT.
[2021-10-18 11:43] LABS: Bun/Creatinine Ratio 15.8 (12.0-20.0); Calcium, Blood 7.3 mg/dL (8.5-10.1); Creatinine, Blood 3.16 mg/dL (0.60-1.20); Potassium, Blood 7.5 mmol/L (3.5-5.5)
--- NOTE | 2021-10-18 13:43 | NUR ---
Spoke with Pt's son Ino who is Pt's healthcare decision maker on advanced directive. Provided update and reviewed plan of care. Plan for Pt to receive emergent dialysis. Discussed Pt's code status and wishes. Ino reports Pt is a DNR and has a POLST form hanging on Pt's refridgerator at home. Ino states Pt made him promise that he would not allow resuscitation. Ino is agreeable to allow emergent dialysis. Gentle education on risks involved with dialysis with v/u made by Ino. Spoke with Dr Schwab and Primary RN Kristen. Placed order in [facility] for DNR per V/O from Dr Schwab. Palliative Care will remain available.
--- NOTE | 2021-10-18 14:19 | NUR ---
PT ON DIALYSIS. FAMILY MADE PT DNR STATUS BEFORE DIALYSIS STARTED. PT IS HYPOTENSIVE. DR. BONILLA CALLED AND NEW ORDER FOR LR BOLUS. POWER NUT RUNNER OPERATOR IS RUNNING BOLUS NOW. PACEMAKER REP IS AT BEDSIDE WITH DR. ROQUE TO INCREASE PACER RATE.
[2021-10-18 17:14] LABS: PO2 Arterial 182 mmHg (80-100)
[2021-10-18 17:18] LABS: pH Blood Arterial 7.18 (7.35-7.45)
--- NOTE | 2021-10-18 17:31 | NUR ---
F/U discussion with Primary PERLA Peterson and Dr Schwab. Reviewed plan of care and discussed poor prognosis. 5th pressor added. Called and spoke with Pt's son Ino (MPOA). Provided updated and discussed goals of care. Ino reports he would like to give Pt more time to see if he responds to treatment. Ino reports living in [facility] and has know way of getting to [place] at this time. Ino reports that he wants to be here before he withdraws care. Continued therapeutic listening and answered questions. Ino expresses appreciation and requests that staff keep him updated with any changes. Relayed conversation and wishes to Primary PERLA Peterson. Palliative Care will remain available.
--- NOTE | 2021-10-18 18:48 | NUR ---
SUMMARY PT INTUBATED, NO SEDATION. PT IS UNRESPONSIVE. PUPILS SLUGGISH BUT EQUAL. ON LEVOPHED, VASOPRESSIN, DOBUTAMINE, NEOSYNEPHRINE, AND EPI GTT. SEE FLOWSHEET FOR TITRATIONS. HAS A-LINE. HAS TRIALYSIS CATH. GOT DIALYSIS TODAY. PT BECAME VERY HYPOTENSIVE WITH DIALYSIS BUT WAS RAN FOR 2 HOURS. POTASSIUM SLIGHTLY IMPROVED ON ABG BUT WILL HAVE ANOTHER BLOOD DRAW TONIGHT. DURING DIALYSIS PT HAD TO HAVE LR BOLUS WELL. ECO2 AND A-LINE CORRELATE. NOW ABLE TO FIND R RADIAL PULSE WITH DOPPLER, L RADIAL IS PALPABLE, BILAT LOWER EXTREMITIES UNABLE TO FIND PULSES WITH DOPPLER. MOTTLED FROM KNEES DOWN AND HAS SOME PURPLE DISCOLORATION TO CHEST THAT HAS RETURNED. BLE'S DUSKY AND COOL, FINGERS DUSKY. UNABLE TO GET A SPO2 READING SO ONLY HAVE ABG TO GO OFF OF. NO URINE OUTPUT THIS SHIFT. OG STILL HAS RUST RED OUTPUT. JAMIL DRAIN INTACT AND NO NEW BLEEDING ON DRESSING. ABSENT BT'S, ABD DISTENDED. HAD LIQUID BM THIS EVENING THAT HAS UNUSUALLY FOUL ODOR. COOPER FELDER IS DECISION MAKER AND HAS BEEN UPDATED ALL DAY. HE IS TRYING TO MAKE ARRANGEMENTS TO GET HERE TO SEE HIS DAD. PT WAS MADE DNR TODAY. SHILPA GAMBOA HAS BEEN AT BEDSIDE TODAY AND UPDATED T/O DAY.
[2021-10-18 21:18] LABS: Magnesium, Blood 1.9 mg/dL (1.6-2.4)
[2021-10-18 21:40] LABS: Albumin, Blood 1.7 g/dL (3.4-5.0); Bilirubin, Total 0.6 mg/dL (0.1-1.0); Bun/Creatinine Ratio 15.8 (12.0-20.0); Calcium, Blood 7.3 mg/dL (8.5-10.1); Creatinine, Blood 2.6 mg/dL (0.60-1.20); Globulin, Blood 1.7 g/dL (2.2-4.0); Phosphorus, Blood 8.8 mg/dL (2.5-4.9); Potassium, Blood 5.6 mmol/L (3.5-5.5); Total Protein, Blood 3.4 g/dL (6.4-8.2)
[2021-10-18 23:23] LABS: Source, Urine Foley catheter
[2021-10-18 23:26] LABS: Bilirubin, Urine Neg (Neg); Blood, Urine 5+ (Neg); Glucose Qualitative, Urine 2+ (Neg); Ketones, Urine 1+ (Neg); Leukocyte Esterase, Urine 1+ (Neg); Nitrite, Urine Neg (Neg); Protein, Urine 4+ (Neg); Urobilinogen, Urine NORM (Normal)
[2021-10-18 23:29] LABS: Appearance, Urine Cloudy (Clear); Color, Urine Yellow (P-Yellow)
[2021-10-18 23:53] LABS: Renal Epithelial Many /hpf (0-Rare); Squamous Epithelial Cells Few /hpf (Few)
[2021-10-18 23:54] LABS: Amorphous Mod (0-Heavy); Bacteria Mod /hpf
[2021-10-19 05:06] LABS: PCO2 Arterial 55.7 mmHg (35-45); PO2 Arterial 92.4 mmHg (80-100)
[2021-10-19 05:11] LABS: Hematocrit 20.2 % (37.0-53.0); Mean Corpuscular HGB 32.4 pg (26.0-34.0); Mean Corpuscular HGB Conc 29.7 g/dL (31.5-36.5); Mean Corpuscular Volume 109 fL (80-100); Mean Platelet Volume 11.8 fL (9.1-12.4); NRBC Auto 3.7 /100 WBC (0.0-0.2); Platelet Count 196 K/mm3 (150-400); RDW Coefficient Variation 16.3 % (11.7-14.2); RDW Standard Deviation 64.4 fL (35.1-46.3); Red Blood Cell Count 1.85 M/mm3 (4.30-5.90)
[2021-10-19 05:25] LABS: White Blood Cell Count 102.37 K/mm3 (4.00-11.30)
[2021-10-19 05:41] LABS: Magnesium, Blood 2.1 mg/dL (1.6-2.4)
[2021-10-19 06:05] LABS: Albumin, Blood 1.6 g/dL (3.4-5.0); Anion Gap 21 mmol/L (6-16); Blood Urea Nitrogen 46 mg/dL (8-24); Bun/Creatinine Ratio 14.9 (12.0-20.0); CO2, Blood 18 mmol/L (21-32); Calcium, Blood 6.4 mg/dL (8.5-10.1); Chloride, Blood 91 mmol/L (98-108); Creatinine, Blood 3.09 mg/dL (0.60-1.20); Glomerular Filtration Rate 20 (60-); Glucose, Blood 552 mg/dL (70-99); Phosphorus, Blood 10.7 mg/dL (2.5-4.9); Potassium, Blood 6.8 mmol/L (3.5-5.5); Sodium, Blood 130 mmol/L (136-145)
[2021-10-19 06:06] LABS: BAND PERCENT MAN 14 % (0-8); BASOPHILS PERCENT MAN 0 % (0-2); EOSINOPHILS PERCENT MAN 0 % (0-6); LYMPHOCYTES ABSOLUTE MAN 9.21 K/mm3 (0.84-5.20); LYMPHOCYTES PERCENT MAN 9 % (21-46); METAMYELOCYTE ABSOLUTE MAN 5.11 K/mm3 (0.00-0.00); METAMYELOCYTE PERCENT MAN 5 % (0-0); MONOCYTES ABSOLUTE MAN 5.11 K/mm3 (0.16-1.47); MONOCYTES PERCENT MAN 5 % (4-13); MYELOCYTE ABSOLUTE MAN 5.11 K/mm3 (0.00-0.00); MYELOCYTE PERCENT MAN 5 % (0-0); NEUTROPHILS ABSOLUTE MAN 74.73 K/mm3 (1.96-9.15); SEG NEUTROPHILS PERCENT MAN 59 % (41-73); TOTAL CELLS COUNTED 100
[2021-10-19 06:07] LABS: BLASTS PERCENT MAN 1 % (0-0); PROMYELOCYTE ABSOLUTE MAN 2.04 K/mm3 (0.00-0.00); PROMYELOCYTE PERCENT MAN 2 % (0-0)
--- NOTE | 2021-10-19 07:30 | NUR ---
ASSUMED CARE: REPORT RECEIVED FROM TILA Nagel RN. ASSUMED CARE OF THIS PT AT APPROX 0700. ON ASSESSMENT, THE PT IS MINIMALLY RESPONSIVE. EYES OPEN PARTIALLY TO PAINFUL STIMULUS, PUPILS UNEQUAL IN RESPONSIVENESS & SLUGGISH. SPONTANEOUS MOVEMENT OF LEFT HAND REPORTED BY MERCHANDISE PLANNING MANAGER, NO SPONTANEOUS MOVEMENT OF EXTREMITIES NOTED BY THIS RN. LS DIM T/O, PT ON VENT W/ SETTINGS: AC/VC 22/500/10/90% W/ O2 SATS DIFFICULT TO OBTAIN. READINGS VARY 85-93% W/ POOR PLETH WAVEFORM NOTED. MONITOR SHOWS 100% V-PACED RHYTHM W/ HR 80. HYPOTENSION PERSISTANT W/ EPINEPHRINE, DOBUTAMINE, LEVOPHED, VASOPRESSIN & NEOSYNEPHRINE INFUSING - SEE FLOWSHEET FOR TITRATION. OGT IN PLACE TO LIS, DRAINING LARGE AMNTS OF MAROON/ COFFEE GROUNDS OUTPUT. MAROON LIQUID STLS DURING NIGHT, PER REPORT. WINSTON PATENT/ DRAINING SCANT AMNTS DARK YELLOW URINE. SKIN CONDITION OVERALL COOL, MOTTLED, INTACT. JAMIL WOUND VAC IN PLACE TO MIDLINE ABD, SMALL AMNT SANGUINOUS DRAINAGE NOTED TO DRESSING, OUTLINED BY PRIOR RN. FAMILY IS AT BEDSIDE AT THIS TIME. WILL CONTINUE TO MONITOR & UPDATE NEEDED.
--- NOTE | 2021-10-19 07:38 | NUR ---
SHIFT SUMMARY PATIENT HAD MINIMAL NEURO RESPONSES LAST NIGHT. RT PUPIL SLIGHTLY LARGER THAN LT WITH MORE SLUGGISH RESPONSE. BEGAN OPENING EYES TO NOXIOUS STIMULI AND MOVING RT HAND. RESPONSES WERE NOT CONSISTENT IN ASSESSMENTS. REMAINED INTUBATED AND UNABLE TO OBTAIN SPO2 READING FROM MULTIPLE SITES. PULSES WERE ABSENT IN RT RADIAL, RT PEDAL, AND RT TIBIAL, DOPPLER IN LT PEDAL AND TIBIAL, AND THREADY IN LT RADIAL. GTTS WERE TITRATED T/O SHIFT TO MAINTAIN MAP 65. THIS AM AROUND 0615 PATIENT BECAME HYPOTENSIVE-110'S/40'S MAPS 50'S. GTTS TITRATED UP THROUGHOUT MORNING SUBSTANTIALLY WITH NO IMPROVEMENT IN BP. LUNG SOUNDS REMAINED VERY DIMINISHED WITH NO SECRETIONS THROUGH THE ETT. BT ACTIVE WITH TWO BM LAST NIGHT OF MIXED CONSISTENCY MAROON STOOL-MOSTLY LIQUID. LARGE AMOUNT OF MAROON OUTPUT FROM OGT. TOTAL OF 50ML URINE OUT WITH OVER 6L IV FLUID IN. CRITICAL LABS: [id number] 8.8 [id number]-[id number], hGB 5.9 0525-WBC 102.37 0603-PHOS 10.7, K 6.8, TROP 1143 NO OTHER CHANGES DURING SHIFT. REPORT GIVEN TO PERLA MARCELO
--- NOTE | 2021-10-19 09:20 | NUR ---
DR COSEM: THIS RN HAS ADRESSED PT's LOW HGB & PERSISTANT HYPOTENSION W/ VASOPRESSORS x5 INFUSING W/ PROVIDER THIS AM. HE HAS ORDERED ALBUMIN AT THIS TIME & PLANS TO REVIEW CHART FURTHER PRIOR TO ORDERING BLOOD THE PT's PROGNOSIS IS OVERALL VERY POOR. THIS RN HAS ALSO DISCUSSED PT's LOW CALCIUM NOTED ON AM LABS, 1G CACL ORDERED PER PROVIDER. DR COSME HAS SPOKEN W/ THE PT's STEPSONSANA, REGARDING THE PT's POOR PROGNOSIS. ANTOINE STS THAT THE PT's SON, WHO LIVES IN [place], IS ON HIS WAY DOWN THIS MORNING & THAT THEY MAY CHOOSE TO WITHDRAW CARE AT THAT TIME. THE PT HAS A POLST ON FILE FROM 2017 THAT STS HE WOULD LIKE TO BE MADE COMFORTABLE & AVOID SUFFERING POSSIBLE. THIS RN HAS INVOLVED PALLIATIVE CARE.
--- NOTE | 2021-10-19 12:19 | NUR ---
Pt's son Edmond call this RN today; states he is unable to come to see the patient, and requests we change pt's code status to comfort care. He acknowledges his step-brother Ronnie is here, and requests I contact him to arrange this. I did talk with Ronnie in the ICU waiting room. He is tearful, but states he knows withdrawing care is the "right thing to do". He requests we move things along, not procrastinate. Bedside RN Shannon is aware. Dr. Sma gave orders for comfort care. Pt has a pacer, advised by Amelia Velez at [facility] this is not an issue, to continue with comfort; there's no defibrillator.
--- NOTE | 2021-10-19 13:40 | NUR ---
COMFORT MEASURES / TIME OF : FAMILY HAS DECIDED TO PROCEED W/ COMFORT MEASURES FOR THIS PT - SEE PALLIATIVE CARE RN NOTE FOR DETAILS. PT EXTUBATED TO ROOM AIR & ALL PRESSORS TURNED OFF AT 1259. MAGNET PLACED TO PT's LEFT CHEST WALL FOR PACEMAKER DEACTIVATION. PACING HAS CONTINUED DESPITE THIS. TOD CALLED AT 1311. NO PALPABLE PULSES OR HEART BEAT NOTED ON AUSCULTATION. VERIFIED BY THIS RN & BLADIMIR Jasso CARPENTER ASSEMBLER. PT's SANA DOSS, IS AT BEDSIDE DURING THIS TIME. HE STS THAT HIS FATHER HAS A BURIAL PLOT PICKED OUT ALREADY & PLANS TO PHONE IN W/ THE DETAILS REGARDING THIS SO THAT A HOME CAN BE CONTACTED FOR THEM.
--- NOTE | 2021-10-19 14:04 | NUR ---
[facility]: DONOR TEAM IS FOLLOWING, THEY HAVE BEEN PROVIDED W/ PT's SELAM HOOD's CONTACT INFO. THEY STS HE IS A POSSIBLE CANDIDATE FOR EYE & TISSUE DONATION. ICE PLACED TO EYES PER [facility] REQUEST. THEY HAVE REQUESTED THAT PT's LABS, IMAGING, PROGRESS NOTES, D/C SUMMARY & FACESHEET BY FAXED TO THEM WELL - CLARITA Weathers PCT, IS COMPLETING THIS TASK.
[2021-10-20 22:06] LABS: HBSAG SCREEN Negative (Negative); HCV AB <0.1 (0.0-0.9); HEP A AB, IGM Negative (Negative); HEP B CORE AB, IGM Negative (Negative)
== END 2021-10-19 13:11 | DRG 853 ==
LOC: ER 16:09 → ICUE 20:05 → ICUW 20:05 → ICUE 21:00
PROVIDERS: Emergency Medicine; Internal Medicine; Internal Medicine Critical Care Medicine; Internal Medicine Nephrology; Surgery; ADMIT Internal Medicine
PROC: 0DTF0ZZ Resection of Right Large Intestine, Open Approach (ICD-10-PCS; 2021-10-17)
PROC: 3E03329 Introduction of Other Anti-infective into Peripheral Vein, Percutaneous Approach (ICD-10-PCS; principal; 2021-10-17 20:45)
PROC: 3E033XZ Introduction of Vasopressor into Peripheral Vein, Percutaneous Approach (ICD-10-PCS; 2021-10-18)
PROC: 5A1935Z Respiratory Ventilation, Less than 24 Consecutive Hours (ICD-10-PCS; 2021-10-18)
PROC: 0BH17EZ Insertion of Endotracheal Airway into Trachea, Via Natural or Artificial Opening (ICD-10-PCS; 2021-10-18)
PROC: 5A1D70Z Performance of Urinary Filtration, Intermittent, Less than 6 Hours Per Day (ICD-10-PCS; 2021-10-18)
PROC: 30233N1 Transfusion of Nonautologous Red Blood Cells into Peripheral Vein, Percutaneous Approach (ICD-10-PCS; 2021-10-18)
PROC: 06HM33Z Insertion of Infusion Device into Right Femoral Vein, Percutaneous Approach (ICD-10-PCS; 2021-10-18)
PROC: 04HY32Z Insertion of Monitoring Device into Lower Artery, Percutaneous Approach (ICD-10-PCS; 2021-10-18)
PROC: 4A133B1 Monitoring of Arterial Pressure, Peripheral, Percutaneous Approach (ICD-10-PCS; 2021-10-18)
PROC: 4A133J1 Monitoring of Arterial Pulse, Peripheral, Percutaneous Approach (ICD-10-PCS; 2021-10-18)
PROC: 4B02XSZ Measurement of Cardiac Pacemaker, External Approach (ICD-10-PCS; 2021-10-18)
DX: A41.9 Sepsis, unspecified organism (principal); R65.21 Severe sepsis with septic shock; J96.90 Respiratory failure, unspecified, unspecified whether with hypoxia or hypercapnia; N17.0 Acute kidney failure with tubular necrosis; K55.039 Acute (reversible) ischemia of large intestine, extent unspecified; I48.20 Chronic atrial fibrillation, unspecified; I50.42 Chronic combined systolic (congestive) and diastolic (congestive) heart failure; I44.2 Atrioventricular block, complete; K62.5 Hemorrhage of anus and rectum; G93.40 Encephalopathy, unspecified; I13.0 Hypertensive heart and chronic kidney disease with heart failure and stage 1 through stage 4 chronic kidney disease, or unspecified chronic kidney disease; E87.1 Hypo-osmolality and hyponatremia; Z66 Do not resuscitate; Z51.5 Encounter for palliative care; I25.10 Atherosclerotic heart disease of native coronary artery without angina pectoris; I25.5 Ischemic cardiomyopathy; K52.9 Noninfective gastroenteritis and colitis, unspecified; G62.9 Polyneuropathy, unspecified; I49.01 Ventricular fibrillation; K90.0 Celiac disease; D75.82 Heparin induced thrombocytopenia (HIT); E78.00 Pure hypercholesterolemia, unspecified; I71.4 Abdominal aortic aneurysm, without rupture; Z20.822 Contact with and (suspected) exposure to COVID-19; J44.9 Chronic obstructive pulmonary disease, unspecified; L13.0 Dermatitis herpetiformis; E87.5 Hyperkalemia; I95.9 Hypotension, unspecified; N18.9 Chronic kidney disease, unspecified; D64.9 Anemia, unspecified; E78.5 Hyperlipidemia, unspecified; E86.9 Volume depletion, unspecified; D72.823 Leukemoid reaction; Z95.0 Presence of cardiac pacemaker; Z98.890 Other specified postprocedural states; Z95.810 Presence of automatic (implantable) cardiac defibrillator; Z95.828 Presence of other vascular implants and grafts; Z87.891 Personal history of nicotine dependence; Z79.51 Long term (current) use of inhaled steroids; Z79.899 Other long term (current) drug therapy; Z79.02 Long term (current) use of antithrombotics/antiplatelets; Z79.01 Long term (current) use of anticoagulants; Z79.2 Long term (current) use of antibiotics; Z79.811 Long term (current) use of aromatase inhibitors
CPT/HCPCS: 0241U; 31500; 36415; 36556; 36600; 36620; 70450; 71045; 73070; 74177; 80048; 80053; 80069; 80074; 81001; 82330; 82803; 82947; 83605; 83735; 83880; 84100; 84484; 85025; 85379; 85610; 85730; 86317; 86850; 86900; 86901; 87040; 87086; 87324; 87493; 88307; 93005; 93010; 93306; 94002; 94003; 94640; 96365-59; 96375; 99285-25; A9270; C1752; J0171; J1100; J1250; J1720; J1815; J1940; J2060; J2250; J2370; J2405; J2543; J2704; J2930; J3010; J7030; J7040; J7050; J7060; J7070; J7120; P9046; Q9967